=== PATIENT | male | born 1990 | race Caucasian/White ===

== ENCOUNTER 2022-06-03 16:59 | Emergency (ER) | payer OTHER, SELFPAY ==
[2022-06-03 19:02] VITALS: BP 133/73; PULSE 76; RESP 18; TEMP 37.2; O2SAT 100; BMI 31.3
--- NOTE | 2022-06-03 21:39 | ED_ITS ---
HPI - Dental/Oral General Chief complaint: Dental/Oral Stated complaint: dental pain Time Seen by Provider: 06/03/22 21:39 History of Present Illness HPI Narrative: This is a 32-year-old male who presents to the emergency department with 3 days of dental pain. He states that over the past 3 days he has had dental pain localized to left upper teeth, this has been constant and worsening since onset and he now reports pain radiation up the left side his and to his head. This pain is described as sharp in nature and persistent despite taking ibuprofen. He states that he has had issues with his teeth in the past that has required the use of antibiotics, does not have any known antibiotic allergies. Has not seen a dentist in some time. Patient states that he has smoked tobacco, approximately 3 cigarettes a day for quite some time, denies chewing tobacco. Denies trauma to the face, mouth or jaw. Denies difficulty or pain with swallowing, fever, chills, stridor, chest pain, shortness of breath, vision changes. MD Complaint: tooth pain Teeth map: 1. Onset (ago): day(s) (3) Duration: constant Severity: moderate Relieving factors: nothing Related Data Previous Rx's Medication Instructions Recorded acetaminophen 325 mg capsule 325 mg PO QID PRN fever or pain 06/03/22 #20 caps amoxicillin 500 mg capsule 500 mg PO BID 10 days #20 caps 06/03/22 ibuprofen 600 mg tablet 600 mg PO Q8H PRN fever or pain 06/03/22 #20 tabs Allergies Allergy/AdvReac Type Severity Reaction Status Date / Time seafood Allergy Swelling Verified 06/03/22 19:02 Review of Systems Review of Systems: Constitutional : No Weight loss, No Fever, No Chills, No Fatigue, No Malaise ENT/Mouth : No sore throat, No Rhinorrhea, + dental pain Eyes: No Eye Pain, No Swelling, No Redness Cardiovascular : No Chest Pain, No SOB, No Dyspnea on Exertion, No Orthopnea, No Edema, No Palpitations Respiratory : No Cough, No Sputum, No Wheezing Gastrointestinal : No Nausea, No Vomiting, No Diarrhea, No Constipation, No abdominal Pain, No Hematochezia, No Melena Genitourinary : No Dysuria, No Urinary Frequency, No Hematuria, Musculoskeletal : No joint pain, No Myalgias, No Joint Swelling Skin : No Skin Lesions, No rash Neuro : No Weakness, No Numbness, No Dizziness, No Headache All other systems reviewed and are negative [facility] Past Medical History Attestation statement: The following information was validated with the patient. Source: old records reviewed and nursing notes reviewed Social History Social History Advance Directives: No Advance Directives Information Provided: No Physical Exam Vital Signs: Vital Signs: Last Vital Signs Temp 98.9 F 06/03/22 19:02 Pulse 76 06/03/22 19:02 Resp 18 06/03/22 19:02 BP 133/73 06/03/22 19:02 Pulse Ox 100 06/03/22 19:02 O2 Del Method 06/03/22 19:02 BMI result Body Mass Index 31.3 vss Appearance: Alert.? Oriented X3.? No acute distress.? Patient is sitting comfortably in the chair. Head: Normocephalic, atraumatic, no step-offs or deformities Eyes: Pupils equal, round and reactive to light.? ENT: Pharynx normal. Uvula midline. No submandibular or submental lymphadenop athy. Poor dentition with multiple caries and fractured tooth to the left lower side. Erythematous and inflamed oral mucosa noted to the left side. Unable to palpate abscess. Speaking in full sentences. No mastoid tenderness. Neck: Normal inspection.? Neck supple.? CVS: Normal heart rate and rhythm.? Pulses normal.? Respiratory: No respiratory distress.? Breath sounds normal.? Abdomen: Soft and nontender.? Skin: Skin warm and dry.? Normal skin color.? Normal skin turgor.? Extremities: No lower extremity edema.? No calf ttp. 5/5 strength to bilateral upper and lower extremities Neuro: Oriented X 3.? No motor deficit.? No sensory deficit. Course Reevaluation(s) Reevaluation #1: Educated patient on plan and diagnosis. Patient will go home with amoxicillin p.o. b.i.d. times 10 days. Advised to follow-up with dentist, educated on worrisome signs and symptoms. Advised to return with any new or worsening symptoms. Time: 22:09 MDM - Dental/Oral MDM Narrative Medical decision making narrative: 2129 This is a 32-year-old male presenting with dental pain localized to the back left molars x3 days. History of dental issues in the past requiring antibiotics. Denies stridor, difficulty swallowing, difficulty speaking. Physical exam significant for pharynx normal. Uvula midline. No submandibular or submental lymphadenopathy. Poor dentition with multiple caries and fractured tooth to the left lower side. Erythematous and inflamed oral mucosa noted to t he left side. Unable to palpate abscess. Speaking in full sentences. No mastoid tenderness. Suspicion for tooth infection. No palpable abscess,no signs of respiratory distress or stridor. No signs of mastoiditis or parotiditis. Educated patient on prompt follow-up with dentist. Discussed returning to the emergency department for worrisome or worsening symptoms. All patient's questions were answered and patient expressed understanding and agreement with discharge plan. Medical Records Attestation: I reviewed the patient's medical records. Lab Data Attestation: I reviewed the patient's lab results. Critical Care Time Critical Care Time Critical Care Time: No Discharge Plan Discharge Clinical Impression: Toothache Patient Disposition: Home, Self-Care Additional Instructions: Take your medications as prescribed. If you were prescribed antibiotics today, it is important that you take your medication to their entirety, do not skip any doses, do not finish them early. Follow-up with your primary care provider and dentist this week. Return to the emergency department with new or worsening symptoms, including difficulty swallowing, difficulty speaking, difficulty opening mouth, fever, worsening pain. In case of emergency call 911 If you do not have a dentist you can call the [facility] [phone] to schedule an apointment Prescriptions: New amoxicillin 500 mg capsule 500 mg PO BID 10 Days Qty: 20 0RF ibuprofen 600 mg tablet 600 mg PO Q8H PRN (Reason: fever or pain) Qty: 20 0RF acetaminophen 325 mg capsule 325 mg PO QID PRN (Reason: fever or pain) Qty: 20 0RF Referrals: Physician,Unknown J [Primary Care Provider] - 2 days Stand Alone Forms: Work/School Release
== END 2022-06-03 22:36 | disposition home or self-care (01) ==
PROVIDERS: Emergency Provider Internal Medicine
DX: K08.89 Other specified disorders of teeth and supporting structures (principal)
CPT/HCPCS: 99282; 99283

== ENCOUNTER 2022-07-11 09:26 | Emergency (ER) | payer OTHER, SELFPAY ==
--- NOTE | ~2022-07-11 | CT_ITS ---
EXAMINATION: CT ABDOMEN AND PELVIS WITHOUT CONTRAST CLINICAL INFORMATION: Right-sided flank pain COMPARISON: None TECHNIQUE: Multidetector volumetric imaging was performed from the superior aspect of the liver through the pubic symphysis. Sagittal and coronal reformatted images were obtained on the technologist's workstation. This CT examination was performed using dose optimization techniques as appropriate, variously including the following: *Automated exposure control *Adjustment of mA and/or kV according to patient size (this includes techniques or standardized protocols for targeted exams where dose is matched to indication/reason for exam; i.e. extremities or head) *Use of iterative reconstruction technique DLP: 615 mGy-cm FINDINGS: LUNG BASES: The visualized lung bases are unremarkable. LIVER, GALLBLADDER, AND BILIARY TREE: The liver is normal in size, shape, and attenuation. No focal hepatic lesion or biliary ductal dilatation is present. The gallbladder is unremarkable with no evidence of radiopaque gallstones, gallbladder wall thickening, or obvious pericholecystic inflammatory changes. PANCREAS: Unremarkable. SPLEEN: Unremarkable. ADRENAL GLANDS: Unremarkable. KIDNEYS AND URETERS: The kidneys are normal in size, shape, and attenuation. No hydronephrosis, hydroureter, or calculi seen. No perinephric stranding. BLADDER: Unremarkable. GASTROINTESTINAL TRACT: The small and large bowel are unremarkable. The appendix is unremarkable. ABDOMINAL WALL: No significant hernia is appreciated. LYMPH NODES: Normal. VASCULAR: Unremarkable. PELVIC VISCERA: Unremarkable. OSSEOUS STRUCTURES: Unremarkable. CT/CT abdomen pelvis wo IV con IMPRESSION: Unremarkable study. No evidence for nephrolithiasis or hydronephrosis. Fleischner guidelines were followed.
[2022-07-11 12:26] VITALS: BP 123/76; PULSE 69; RESP 18; TEMP 36.2; O2SAT 97; BMI 32.8
--- NOTE | 2022-07-11 12:42 | ED.BACK ---
HPI - Back Pain/Injury General Chief Complaint: Back Pain/Injury Stated Complaint: back pain r hand pain coughing Time Seen by Provider: 07/11/22 12:41 Source: patient, family and rehabilitation therapy technician Mode of arrival: ambulatory Limitations: no limitations History of Present Illness HPI Narrative: 32-year-old male came in for evaluation of back pain. Back pain started 2 days ago, pain is localized to mid back and right flank area, patient declined any trauma or moving in the wrong way or injury to the back, never had this pain in the past, no history of kidney stones, reported that urine is dark, no fever or chills. Decline dysuria, urinary frequency, or risk for STDs. Related Data Previous Rx's Medication Instructions Recorded acetaminophen 325 mg capsule 325 mg PO QID PRN fever or pain 06/03/22 #20 caps amoxicillin 500 mg capsule 500 mg PO BID 10 days #20 caps 06/03/22 ibuprofen 600 mg tablet 600 mg PO Q8H PRN fever or pain 06/03/22 #20 tabs ibuprofen 600 mg tablet 600 mg PO Q8H PRN pain #20 tabs 07/11/22 Allergies Allergy/AdvReac Type Severity Reaction Status Date / Time seafood Allergy Swelling Verified 06/03/22 19:02 Review of Systems Review of Systems: All other systems are reviewed and are negative Constitutional: Reports as per HPI and Reports no additional constitutional complaints Eyes: Reports as per HPI and Reports no additional eye complaints Reports system reviewed and no additional complaints, except as documented Cardiovascular: Reports as per HPI and Reports no additional cardiovascular complaints Respiratory: Reports as per HPI and Reports no additional respiratory complaints Gastrointestinal: Reports as per HPI and Reports no additional gastrointestinal complaints Genitourinary: Reports no additional female genitourinary complaints Musculoskeletal: Reports no additional musculoskeletal complaints Skin/Breast: Reports system reviewed and no additional complaints, except as docu Psychiatric: Reports no additional psychiatric complaints Endocrine: Reports no additional endocrine complaints Hematologic/Lymphatic: Reports no additional hematologic/lymphatic complaints Allergic/Immunologic: Reports no additional allergic/immunologic complaints Reports system reviewed and no additional complaints, except as documented and Reports Abnormal speech present [facility] Social History Social History Advance Directives: No Advance Directives Information Provided: No Physical Exam Vital Signs: Vital Signs: Last Vital Signs Temp 97.1 F 07/11/22 12:26 Pulse 69 07/11/22 12:26 Resp 18 07/11/22 12:26 BP 123/76 07/11/22 12:26 Pulse Ox 97 07/11/22 12:26 O2 Del Method 07/11/22 12:26 BMI result Body Mass Index 32.8 Vital signs have been reviewed as appeared to be correct. Blood pressure normal. Heart rate normal. Respiration rate normal. Temperature normal. Oxygen saturation normal. Appearance: Alert. Oriented X3. No acute distress. Head: Normal external exam. Normocephalic. Atraumatic. No Carrillo signs noted. No raccoon eyes noted Eyes: PERRLA. EOMI. Conjunctiva and sclera normal. Eyelids normal. ENT: TM's Normal. Pharynx normal. Uvula midline. Moist mucous membranes. No trismus noted. No drooling noted. No muffled voice noted. Neck: Normal inspection. Neck supple. FROM. No adenopathy. Thyroid Normal. No meningeal signs. No neck mass noted. CVS: Normal heart rate and rhythm. Heart sound normal. No murmurs noted. Pulses normal throughout. Respiratory: No respiratory distress. Painless inspiration. Breath sounds normal. No wheezes/rales/rhonchi noted. Chest nontender. No accessory muscle usage noted or decreased air movement noted. Abdomen: Soft and nontender. Bowel sounds normal in all 4 quadrants. No distention noted. No organomegaly noted. No visible injury noted. Back: R CVA tenderness. Full range of motion noted. Skin: Skin warm and dry. Normal skin color. Normal skin turgor. No rashes/lesions/lacerations noted. Extremities: No lower extremity edema. Extremities exhibit normal range of motion. Extremities nontender. Neuro: Oriented X 3. Cranial nerve exam: II-XII are grossly intact No motor deficit. No sensory deficit. Reflexes normal. Course Course Course Narrative: 32-year-old male came in for evaluation of back pain and right flank pain, CT was unremarkable for acute intra-abdominal pathology, however micro hematuria was noticed on the patient's urine which could be recent stone passage. Start the patient on NSAIDs p.r.n. pain and rest with heating pads. MDM - Back Pain/Injury Lab Data Attestation: I reviewed the patient's lab results. Result diagrams: 07/11/22 13:23 07/11/22 13:23 Labs: Lab Results 07/11/22 07/11/22 07/11/22 Range/Units 13:23 13:23 13:23 WBC 7.3 (4.8-10.8) X10*3/uL RBC 5.61 (4.60-5.80) X10*6/uL Hgb 16.6 (14.0-18.0) g/dl Hct 49.4 (42.0-52.0) % MCV 88.1 (80.0-98.0) fL MCH 29.6 (27.0-33.0) pg MCHC 33.6 (31.0-36.0) g/dl RDW 12.8 (11.0-16.0) % Plt Count 260 (160-400) X10*3/uL MPV 8.7 L (9.4-12.4) fL Immature Gran % (Auto) 0.3 (0.0-0.4) % Neut % (Auto) 56.0 (45-73) % Lymph % (Auto) 28.4 (20-40) % Evangeline % (Auto) 11.3 H (2-11) % Eos % (Auto) 3.3 (0-4) % Baso % (Auto) 0.7 (0-2) % Lymph # (Auto) 2.1 (1.2-4.9) X10*3/uL Evangeline # (Auto) 0.8 (0.1-1.2) X10*3/uL Eos # (Auto) 0.2 (0.0-0.4) X10*3/uL Baso # (Auto) 0.1 (0.0-0.2) X10*3/uL Abs Immat Gran (auto) 0.02 (0.00-0.03) X10*3/uL Absolute Neuts (auto) 4.1 (2.0-8.3) x10*3/uL Absolute Nucleated RBC 0.000 (0.0-0.012) X10*3/uL Nucleated RBC % (auto) 0.0 (0.0-0.2) /100WBC Sodium 138 (135-145) mmol/L Potassium 4.4 (3.3-5.1) mmol/L Chloride 102 (96-108) mmol/L Carbon Dioxide 25 (22-29) mmol/L Anion Gap 15 (12-20) BUN 9 (9-16) mg/dL Creatinine 1.31 (0.5-1.4) mg/dL Estim Creat Clear Calc 89.0 Estimated GFR > 60 Random Glucose 96 (60-115) mg/dL Calcium 9.3 (8.4-10.2) mg/dL Lipase 14 (8-78) U/L Urine Color Yellow Urine Appearance Clear Urine pH 6.5 (5.0-9.0) Ur Specific [place] 1.020 (1.005-1.025) Urine Protein Negative (Neg-Trace) mg/dL Urine Glucose (UA) Negative (Negative) mg/dL Urine Ketones Negative (Negative) mg/dL Urine Blood Negative (Negative) Urine Nitrite Negative (Negative) Ur Leukocyte Esterase Trace H (Negative) Urine RBC 3-5 H (0-2) /HPF Urine WBC 0-5 (0-5) /HPF Ur Squamous Epith Cells 0-2 (0-2) /HPF Urine Bacteria None Seen (None Seen) Hyaline Casts 0-2 (0-2) /LPF Imaging Data CT abdomen pelvis: Attestation: I personally reviewed and interpreted this imaging study as follows: Radiologist's impression: Unremarkable study. No evidence of nephrolithiasis or hydronephrosis. Discharge Plan Discharge Clinical Impression: Strain of lumbar region Patient Disposition: Home, Self-Care Instructions: Back Pain (ED) Prescriptions: New ibuprofen 600 mg tablet 600 mg PO Q8H PRN (Reason: pain) Qty: 20 0RF No Action amoxicillin 500 mg capsule 500 mg PO BID 10 Days Qty: 20 0RF ibuprofen 600 mg tablet 600 mg PO Q8H PRN (Reason: fever or pain) Qty: 20 0RF acetaminophen 325 mg capsule 325 mg PO QID PRN (Reason: fever or pain) Qty: 20 0RF Referrals: Physician,Unknown J [Primary Care Provider] -
[2022-07-11 13:28] LABS: MANUAL DIFF FLAG NO
[2022-07-11 13:30] LABS: Basophils Absolute Auto 0.1 X10*3/uL (0.0-0.2); Basophils Percent Auto 0.7 % (0-2); Eosinophils Absolute Auto 0.2 X10*3/uL (0.0-0.4); Eosinophils Percent Auto 3.3 % (0-4); Hematocrit 49.4 % (42.0-52.0); Hemoglobin 16.6 g/dl (14.0-18.0); Imm Gran Abs Auto 0.02 X10*3/uL (0.00-0.03); Imm Gran Pct Auto 0.3 % (0.0-0.4); Lymphocytes Absolute Auto 2.1 X10*3/uL (1.2-4.9); Lymphocytes Percent Auto 28.4 % (20-40); Mean Corpuscular HGB Conc 33.6 g/dl (31.0-36.0); Mean Corpuscular Hemoglobin 29.6 pg (27.0-33.0); Mean Corpuscular Volume 88.1 fL (80.0-98.0); Mean Platelet Volume 8.7 fL (9.4-12.4); Monocytes Absolute Auto 0.8 X10*3/uL (0.1-1.2); Monocytes Percent Auto 11.3 % (2-11); Neutrophils Absolute Auto 4.1 x10*3/uL (2.0-8.3); Platelet Count 260 X10*3/uL (160-400); Red Blood Count 5.61 X10*6/uL (4.60-5.80); Red Cell Distribution Width 12.8 % (11.0-16.0); White Blood Count 7.3 X10*3/uL (4.8-10.8)
[2022-07-11 13:31] LABS: Appearance Urine Clear; Color Urine Yellow; Glucose Urine UA Negative (Negative); Leukocyte Esterase Urine Trace (Negative); Nitrite Urine Negative (Negative); PH 6.5 (5.0-9.0); UMIC TRIGGER UACC YES; Urine Blood Negative (Negative); Urine Ketones Negative (Negative); Urine Protein Negative (Neg-Trace)
[2022-07-11 13:36] LABS: Bacteria Urine None Seen (None Seen); Hyaline Casts Urine 0-2 /LPF (0-2); Squamous Epithelial Cell Urine 0-2 /HPF (0-2); WBC Urine 0-5 /HPF (0-5)
[2022-07-11 13:43] LABS: Anion Gap 15 (12-20); Blood Urea Nitrogen 9 mg/dL (9-16); Calcium 9.3 mg/dL (8.4-10.2); Carbon Dioxide 25 mmol/L (22-29); Chloride 102 mmol/L (96-108); Estimated Glomerular Filt Rate > 60; Glucose Random 96 mg/dL (60-115); Lipase 14 U/L (8-78); Potassium 4.4 mmol/L (3.3-5.1); Sodium 138 mmol/L (135-145)
--- NOTE | 2022-07-11 14:46 | PC.NURSE ---
pt pwd at time of discharge. pt ambulatory. partner at bedside. discharge packet and work note provided to pt at time of discharge. pt verbalized understanding of discharge plan
== END 2022-07-11 14:47 | disposition home or self-care (01) ==
PROVIDERS: Emergency Provider Emergency Medicine
DX: S39.012A Strain of muscle, fascia and tendon of lower back, initial encounter (principal); X58.XXXA Exposure to other specified factors, initial encounter; Y93.9 Activity, unspecified; Y92.9 Unspecified place or not applicable; Y99.9 Unspecified external cause status
CPT/HCPCS: 36415; 74176; 80048; 81001; 83690; 85025; 99284

== ENCOUNTER 2022-11-11 16:25 | Emergency (ER) | payer OTHER, SELFPAY ==
[2022-11-11 16:59] VITALS: BP 118/68; PULSE 90; RESP 20; TEMP 37.7; O2SAT 97; BMI 31.3
--- NOTE | 2022-11-11 17:00 | ED_ITS ---
HPI - General Adult General Chief complaint: Fever <ELLE Starks - Last Filed: 11/11/22 17:01> Stated complaint: Fever, body ache <ELLE Starks - Last Filed: 11/11/22 17:01> Time Seen by Provider: 11/11/22 18:16 <ELLE Starks - Last Filed: 11/11/22 17:01> Source: patient <Luis Alfredo Nelson MD - Last Filed: 11/11/22 20:26> Mode of arrival: ambulatory <Luis Alfredo Nelson MD - Last Filed: 11/11/22 20:26> Limitations: no limitations <Luis Alfredo Nelson MD - Last Filed: 11/11/22 20:26> History of Present Illness HPI narrative: Pt presented to the Ed c/p URI symptoms fever malaise <Luis Alfredo Nelson MD - Last Filed: 11/11/22 20:26> Onset (ago): hour(s) (6) <Luis Alfredo Nelson MD - Last Filed: 11/11/22 20:26> Radiation: non-radiation <Luis Alfredo Nelson MD - Last Filed: 11/11/22 20:26> Severity: moderate <Luis Alfredo Nelson MD - Last Filed: 11/11/22 20:26> Pain Consistency: constant <Luis Alfredo Nelson MD - Last Filed: 11/11/22 20:26> Relieving factors: none <Luis Alfredo Nelson MD - Last Filed: 11/11/22 20:26> Exacerbating factors: none <Luis Alfredo Nelson MD - Last Filed: 11/11/22 20:26> Related Data Home medications: Previous Rx's Medication Instructions Recorded acetaminophen 325 mg capsule 325 mg PO QID PRN fever or pain 06/03/22 #20 caps amoxicillin 500 mg capsule 500 mg PO BID 10 days #20 caps 06/03/22 ibuprofen 600 mg tablet 600 mg PO Q8H PRN fever or pain 06/03/22 #20 tabs ibuprofen 600 mg tablet 600 mg PO Q8H PRN pain #20 tabs 07/11/22 <ELLE Starks - Last Filed: 11/11/22 17:01> Allergies/adverse reactions: Allergies Allergy/AdvReac Type Severity Reaction Status Date / Time seafood Allergy Swelling Verified 06/03/22 19:02 <ELLE Starks - Last Filed: 11/11/22 17:01> Review of Systems Constitutional: Constitutional: Reports no additional constitutional complaints <Luis Alfredo Nelson MD - Last Filed: 11/11/22 20:26> Eyes: Eyes: Reports no additional eye complaints <Luis Alfredo Nelson MD - Last Filed: 11/11/22 20:26> Respiratory: Respiratory: Reports no additional respiratory complaints <Luis Alfredo Nelson MD - Last Filed: 11/11/22 20:26> Allergic/Immunologic: Allergic/Immunologic: Reports no additional allergic/immunologic complaints <Luis Alfredo Nelson MD - Last Filed: 11/11/22 20:26> PMFSH [facility] Narrative: none <Luis Alfredo Nelson MD - Last Filed: 11/11/22 20:26> Social History Social History: Social History Advance Directives: No Advance Directives Information Provided: No <ELLE Starks - Last Filed: 11/11/22 17:01> Physical Exam ED Vital Signs: Vital Signs - 24 hr 11/11/22 16:59 11/11/22 18:34 Temperature 99.8 F 100.7 F H Pulse Rate 90 96 Respiratory Rate 20 20 Blood Pressure 118/68 128/62 Pulse Oximetry 97 98 Oxygen Delivery Method Room Air Room Air BMI result Body Mass Index 31.3 <ELLE Starks - Last Filed: 11/11/22 17:01> Vital Signs - 24 hr 11/11/22 16:59 11/11/22 18:34 Temperature 99.8 F 100.7 F H Pulse Rate 90 96 Respiratory Rate 20 20 Blood Pressure 118/68 128/62 Pulse Oximetry 97 98 Oxygen Delivery Method Room Air Room Air BMI result Body Mass Index 31.3 <Luis Alfredo Nelson MD - Last Filed: 11/11/22 20:26> Const General: cooperative, healthy appearing and comfortable <Luis Alfredo Nelson MD - Last Filed: 11/11/22 20:26> Nutritional Appearance: average body habitus and well nourished <Luis Alfredo Nelson MD - Last Filed: 11/11/22 20:26> Orientation/consciousness: oriented to person and patient oriented x3 <Luis Alfredo Nelson MD - Last Filed: 11/11/22 20:26> HENMT Head: Yes normal to inspection <Luis Alfredo Nelson MD - Last Filed: 11/11/22 20:26> General nose exam: Normal external nose present <Luis Alfredo Nelson MD - Last Filed: 11/11/22 20:26> Face and sinus: Yes normal facial exam <Luis Alfredo Nelson MD - Last Filed: 11/11/22 20:26> Mouth: Normal oral and palatal mucosa present <Luis Alfredo Nelson MD - Last Filed: 11/11/22 20:26> Throat: Yes posterior oropharynx normal <Luis Alfredo Nelson MD - Last Filed: 11/11/22 20:26> Neck Neck: Yes normal visual inspection, Yes full ROM and Yes no lymphadenopathy <Luis Alfredo Nelson MD - Last Filed: 11/11/22 20:26> Thyroid: Thyroid normal <Luis Alfredo Nelson MD - Last Filed: 11/11/22 20:26> Chest Chest palpation & inspection: normal inspection of the chest <Luis Alfredo Nelson MD - Last Filed: 11/11/22 20:26> Resp Effort & Inspection: normal respiratory effort <Luis Alfredo Nelson MD - Last Filed: 11/11/22 20:26> Auscultation: clear to auscultation bilaterally <Luis Alfredo Nelson MD - Last Filed: 11/11/22 20:26> Cardio Jugular venous distension: no JVD <Luis Alfredo Nelson MD - Last Filed: 11/11/22 20:26> Rate: regular rate <Luis Alfredo Nelson MD - Last Filed: 11/11/22 20:26> Rhythm: regular rhythm <Luis Alfredo Nelson MD - Last Filed: 11/11/22 20:26> GI Inspection: Yes normal to inspection <Luis Alfredo Nelson MD - Last Filed: 11/11/22 20:26> Palpation (GI): Soft to palpation, not firm and nontender <Luis Alfredo Nelson MD - Last Filed: 11/11/22 20:26> General: Yes no CVA tenderness <Luis Alfredo Nelson MD - Last Filed: 11/11/22 20:26> Back/Spine/Pelvis Back: no CVA tenderness <Luis Alfredo Nelson MD - Last Filed: 11/11/22 20:26> Skin General skin exam: no rashes or lesions noted <Luis Alfredo Nelson MD - Last Filed: 11/11/22 20:26> Lesions: no lesions <Luis Alfredo Nelson MD - Last Filed: 11/11/22 20:26> Rashes: no rashes <Luis Alfredo Nelson MD - Last Filed: 11/11/22 20:26> Neuro General: oriented to person and patient oriented x3 <Luis Alfredo Nelson MD - Last Filed: 11/11/22 20:26> Course Course Course Narrative: RME performed by Mae Oliver PA-C. Patient is a 32 year old male presenting to the emergency department with a fever and feeling generally unwell. COVID/Influenza/RSV swab ordered. Patient placed back in waiting room pending results and room availability. <ELLE Starks - Last Filed: 11/11/22 17:01> Reevaluation(s) Reevaluation #1: Reviewed hemodynamically stable workup showed the COVID at this time I think we could discharge the patient home he is oxygenating well he has no comorbidity. <Luis Alfredo Nelson MD - Last Filed: 11/11/22 20:26> Time: 20:26 <Luis Alfredo Nelson MD - Last Filed: 11/11/22 20:26> Medications Administered Discontinued Medications Generic Name Dose Route Start Last Admin Trade Name Freq PRN Reason Stop Dose Admin Ibuprofen 800 mg 11/11/22 18:24 11/11/22 18:40 Ibuprofen 800 Mg Tablet PO 11/11/22 18:25 800 mg ONCE ONE Administration <ELLE Starks - Last Filed: 11/11/22 17:01> Medications Administered Discontinued Medications Generic Name Dose Route Start Last Admin Trade Name Freq PRN Reason Stop Dose Admin Ibuprofen 800 mg 11/11/22 18:24 11/11/22 18:40 Ibuprofen 800 Mg Tablet PO 11/11/22 18:25 800 mg ONCE ONE Administration <Luis Alfredo Nelson MD - Last Filed: 11/11/22 20:26> Medical Decision Making Medical Decision Making [facility] Narrative: Presented with the fever URI symptoms will test for COVID RSV and reassessed <Luis Alfredo Nelson MD - Last Filed: 11/11/22 20:26> Differential Diagnosis Differential Diagnoses: The differential diagnosis associated with the presentation includes <Luis Alfredo Nelson MD - Last Filed: 11/11/22 20:26> covid/pneumonia/viral illness <Luis Alfredo Nelson MD - Last Filed: 11/11/22 20:26> Admission/Observation Consideration of admission/observation: Escalation of care including admission/observation considered <Luis Alfredo Nelson MD - Last Filed: 11/11/22 20:26> Lab Data [facility] Lab Attestation statement: I reviewed the patient's lab results. <Luis Alfredo Nelson MD - Last Filed: 11/11/22 20:26> Result Diagrams: 11/11/22 18:37 11/11/22 18:37 <ELLE Starks - Last Filed: 11/11/22 17:01> Labs: Lab Results 11/11/22 11/11/22 11/11/22 Range/Units 18:37 18:37 18:37 WBC 4.5 L (4.8-10.8) X10*3/uL RBC 5.06 (4.60-5.80) X10*6/uL Hgb 15.1 (14.0-18.0) g/dl Hct 43.8 (42.0-52.0) % MCV 86.6 (80.0-98.0) fL MCH 29.8 (27.0-33.0) pg MCHC 34.5 (31.0-36.0) g/dl RDW 12.9 (11.0-16.0) % Plt Count 230 (160-400) X10*3/uL MPV 8.6 L (9.4-12.4) fL Immature Gran % (Auto) 0.4 (0.0-0.4) % Neut % (Auto) 68.8 (45-73) % Lymph % (Auto) 11.7 L (20-40) % Harding % (Auto) 16.7 H (2-11) % Eos % (Auto) 2.0 (0-4) % Baso % (Auto) 0.4 (0-2) % Lymph # (Auto) 0.5 L (1.2-4.9) X10*3/uL Harding # (Auto) 0.8 (0.1-1.2) X10*3/uL Eos # (Auto) 0.1 (0.0-0.4) X10*3/uL Baso # (Auto) 0.0 (0.0-0.2) X10*3/uL Abs Immat Gran (auto) 0.02 (0.00-0.03) X10*3/uL Absolute Neuts (auto) 3.1 (2.0-8.3) x10*3/uL Absolute Nucleated RBC 0.000 (0.0-0.012) X10*3/uL Nucleated RBC % (auto) 0.0 (0.0-0.2) /100WBC Sodium 138 (135-145) mmol/L Potassium 4.1 (3.3-5.1) mmol/L Chloride 105 (96-108) mmol/L Carbon Dioxide 24 (22-29) mmol/L Anion Gap 13 (12-20) BUN 13 (9-16) mg/dL Creatinine 1.46 H (0.5-1.4) mg/dL Estim Creat Clear Calc 78.0 Estimated GFR 56 Random Glucose 115 (60-115) mg/dL Calcium 9.0 (8.4-10.2) mg/dL Total Bilirubin 0.4 (0.0-1.0) mg/dL AST 67 H (5-37) U/L ALT 62 H (0-40) U/L Alkaline Phosphatase 102 (39-117) U/L Total Protein 7.3 (6.5-8.0) g/dL Albumin 4.0 (3.5-5.0) g/dL Influenza Type A (PCR) NEGATIVE (Negative) Influenza Type B (PCR) NEGATIVE (Negative) RSV RNA Qual (PCR) NEGATIVE (Negative) SARS-CoV-2 RNA (RT-PCR) POSITIVE A (Negative) <ELLE Starks - Last Filed: 11/11/22 17:01> Lab Results 11/11/22 11/11/22 11/11/22 Range/Units 18:37 18:37 18:37 WBC 4.5 L (4.8-10.8) X10*3/uL RBC 5.06 (4.60-5.80) X10*6/uL Hgb 15.1 (14.0-18.0) g/dl Hct 43.8 (42.0-52.0) % MCV 86.6 (80.0-98.0) fL MCH 29.8 (27.0-33.0) pg MCHC 34.5 (31.0-36.0) g/dl RDW 12.9 (11.0-16.0) % Plt Count 230 (160-400) X10*3/uL MPV 8.6 L (9.4-12.4) fL Immature Gran % (Auto) 0.4 (0.0-0.4) % Neut % (Auto) 68.8 (45-73) % Lymph % (Auto) 11.7 L (20-40) % Harding % (Auto) 16.7 H (2-11) % Eos % (Auto) 2.0 (0-4) % Baso % (Auto) 0.4 (0-2) % Lymph # (Auto) 0.5 L (1.2-4.9) X10*3/uL Harding # (Auto) 0.8 (0.1-1.2) X10*3/uL Eos # (Auto) 0.1 (0.0-0.4) X10*3/uL Baso # (Auto) 0.0 (0.0-0.2) X10*3/uL Abs Immat Gran (auto) 0.02 (0.00-0.03) X10*3/uL Absolute Neuts (auto) 3.1 (2.0-8.3) x10*3/uL Absolute Nucleated RBC 0.000 (0.0-0.012) X10*3/uL Nucleated RBC % (auto) 0.0 (0.0-0.2) /100WBC Sodium 138 (135-145) mmol/L Potassium 4.1 (3.3-5.1) mmol/L Chloride 105 (96-108) mmol/L Carbon Dioxide 24 (22-29) mmol/L Anion Gap 13 (12-20) BUN 13 (9-16) mg/dL Creatinine 1.46 H (0.5-1.4) mg/dL Estim Creat Clear Calc 78.0 Estimated GFR 56 Random Glucose 115 (60-115) mg/dL Calcium 9.0 (8.4-10.2) mg/dL Total Bilirubin 0.4 (0.0-1.0) mg/dL AST 67 H (5-37) U/L ALT 62 H (0-40) U/L Alkaline Phosphatase 102 (39-117) U/L Total Protein 7.3 (6.5-8.0) g/dL Albumin 4.0 (3.5-5.0) g/dL Influenza Type A (PCR) NEGATIVE (Negative) Influenza Type B (PCR) NEGATIVE (Negative) RSV RNA Qual (PCR) NEGATIVE (Negative) SARS-CoV-2 RNA (RT-PCR) POSITIVE A (Negative) <Luis Alfredo Nelson MD - Last Filed: 11/11/22 20:26> Independent Historian Clinical information obtained from an independent historian. History obtained from or confirmed by: Spouse <Luis Alfredo Nelson MD - Last Filed: 11/11/22 20:26> Discharge Plan Discharge Clinical Impression: COVID-19 <ELLE Starks - Last Filed: 11/11/22 17:01> Patient Disposition: Home, Self-Care <ELLE Starks - Last Filed: 11/11/22 17:01> Instructions: COVID-19 (Coronavirus Disease 2019) (ED) <ELLE Starks - Last Filed: 11/11/22 17:01> Additional Instructions: follow up with primary care doctor return if worse <ELLE Starks - Last Filed: 11/11/22 17:01> Prescriptions: No Action amoxicillin 500 mg capsule 500 mg PO BID 10 Days Qty: 20 0RF ibuprofen 600 mg tablet 600 mg PO Q8H PRN (Reason: fever or pain) Qty: 20 0RF acetaminophen 325 mg capsule 325 mg PO QID PRN (Reason: fever or pain) Qty: 20 0RF ibuprofen 600 mg tablet 600 mg PO Q8H PRN (Reason: pain) Qty: 20 0RF <ELLE Starks - Last Filed: 11/11/22 17:01> Stand Alone Forms: Work/School Release <ELLE Starks - Last Filed: 11/11/22 17:01>
[2022-11-11 18:34] VITALS: BP 128/62; PULSE 96; RESP 20; TEMP 38.2; O2SAT 98
[2022-11-11] MEDS: Ibuprofen 800 MG TABLET PO (18:40)
[2022-11-11 18:53] LABS: MANUAL DIFF FLAG NO
[2022-11-11 18:54] LABS: Basophils Percent Auto 0.4 % (0-2); Eosinophils Absolute Auto 0.1 X10*3/uL (0.0-0.4); Hematocrit 43.8 % (42.0-52.0); Hemoglobin 15.1 g/dl (14.0-18.0); Imm Gran Abs Auto 0.02 X10*3/uL (0.00-0.03); Imm Gran Pct Auto 0.4 % (0.0-0.4); Lymphocytes Absolute Auto 0.5 X10*3/uL (1.2-4.9); Lymphocytes Percent Auto 11.7 % (20-40); Mean Corpuscular HGB Conc 34.5 g/dl (31.0-36.0); Mean Corpuscular Hemoglobin 29.8 pg (27.0-33.0); Mean Corpuscular Volume 86.6 fL (80.0-98.0); Mean Platelet Volume 8.6 fL (9.4-12.4); Monocytes Absolute Auto 0.8 X10*3/uL (0.1-1.2); Monocytes Percent Auto 16.7 % (2-11); Neutrophils Absolute Auto 3.1 x10*3/uL (2.0-8.3); Neutrophils Percent Auto 68.8 % (45-73); Platelet Count 230 X10*3/uL (160-400); Red Blood Count 5.06 X10*6/uL (4.60-5.80); Red Cell Distribution Width 12.9 % (11.0-16.0); White Blood Count 4.5 X10*3/uL (4.8-10.8)
[2022-11-11 19:09] LABS: Alanine Aminotransferase 62 U/L (0-40); Alkaline Phosphatase 102 U/L (39-117); Anion Gap 13 (12-20); Aspartate Amino Transferase 67 U/L (5-37); Bilirubin Total 0.4 mg/dL (0.0-1.0); Blood Urea Nitrogen 13 mg/dL (9-16); Carbon Dioxide 24 mmol/L (22-29); Chloride 105 mmol/L (96-108); Estimated Glomerular Filt Rate 56; Glucose Random 115 mg/dL (60-115); Potassium 4.1 mmol/L (3.3-5.1); Sodium 138 mmol/L (135-145); Total Protein 7.3 g/dL (6.5-8.0)
[2022-11-11 19:32] LABS: Influenza A PCR NEGATIVE (Negative); Influenza B PCR NEGATIVE (Negative); Resp Syncy Virus RNA Qual PCR NEGATIVE (Negative); SARS COV2 PCR INHOUSE POSITIVE (Negative)
--- NOTE | 2022-11-11 19:34 | PC.NURSE ---
assumed care of patient at this time a&ox4, resting quietly while visitor at bedside no apparent distress
--- NOTE | 2022-11-11 20:42 | PC.NURSE ---
discharge instructions given and explained, ambulates safely/independently, no respiratory distress, no sob, able to speak in full sentences; all questions answered
== END 2022-11-11 20:43 | disposition home or self-care (01) ==
PROVIDERS: Physician Assistant Medical; Emergency Provider Emergency Medicine
DX: U07.1 COVID-19 (principal); R50.9 Fever, unspecified
CPT/HCPCS: 0241U; 36415; 80053; 85025; 99283; 99284

== ENCOUNTER 2022-12-02 17:11 | Emergency (ER) | payer OTHER, SELFPAY ==
[2022-12-02 17:44] VITALS: BP 118/77; PULSE 76; RESP 18; TEMP 37.1; O2SAT 97; BMI 34.4
--- NOTE | 2022-12-02 19:57 | ED_ITS ---
HPI - Ear Problem General Chief complaint: Ear Problems Stated complaint: Earache Time Seen by Provider: 12/02/22 19:36 Source: patient and family Mode of arrival: ambulatory Limitations: no limitations History of Present Illness HPI Narrative: 32-year-old male presenting to the ER with his girlfriend with complaints of bilateral ear pain for the past week worse on the left than the right. Reports he feels like there was discharged to the left ear canal although unable to visualize it. Reports he did buy some [id number] drops which is not providing any symptomatic relief. He denies any fevers, nasal congestion/rhinorrhea, sore throat, recent falls or trauma, recent swimming or any other symptoms complaints or concerns at this time. MD Complaint: ear pain and decreased hearing Location: left ear Duration: constant Severity: mild Relieving factors: nothing Exacerbating factors: palpation Discharge from ear: yes - purulent Associated symptoms ear: decreased hearing, external ear tenderness and ear swelling Treatment prior to arrival: eardrops Related Data Previous Rx's Medication Instructions Recorded acetaminophen 325 mg capsule 325 mg PO QID PRN fever or pain 06/03/22 #20 caps amoxicillin 500 mg capsule 500 mg PO BID 10 days #20 caps 06/03/22 ibuprofen 600 mg tablet 600 mg PO Q8H PRN fever or pain 06/03/22 #20 tabs ibuprofen 600 mg tablet 600 mg PO Q8H PRN pain #20 tabs 07/11/22 acetaminophen 300 mg-codeine 30 mg 1 tab PO Q8H PRN pain #10 tabs 12/02/22 tablet amoxicillin 875 mg-potassium 1 tab PO BID 7 days #14 tabs 12/02/22 clavulanate 125 mg tablet ciprofloxacin HCl 0.2 % ear drops 5 drp otic (ear) left BID Otitis 12/02/22 in a dropperette externa 7 days #14 ea Allergies Allergy/AdvReac Type Severity Reaction Status Date / Time seafood Allergy Swelling Verified 12/02/22 17:46 Review of Systems Review of Systems: Constitutional : No Weight loss, No Fever, No Chills, No Night Sweats, No Fatigue, No Malaise ENT/Mouth : No Hearing loss, + Ear Pain, No Nasal Congestion, No Sinus Pain, No Hoarseness, No sore throat, No Rhinorrhea, No Swallowing Difficulty Eyes: No Eye Pain, No Swelling, No Redness, No Foreign Body, No Discharge, No Vision Changes Cardiovascular : No Chest Pain, No SOB, No Dyspnea on Exertion, No Orthopnea, No Edema, No Palpitations Respiratory : No Cough, No Sputum, No Wheezing, No Smoke Exposure, No Dyspnea Gastrointestinal : No Nausea, No Vomiting, No Diarrhea, No Constipation, No abdominal Pain, No Hematochezia, No Melena Genitourinary : no irregular bleeding, No Dysuria, No Urinary Frequency, No Hematuria, No Urinary Incontinence, No Urgency, No Flank Pain, No Urinary Flow Changes, No Hesitancy Musculoskeletal : No joint pain, No Myalgias, No Joint Swelling Skin : No Skin Lesions, No rash Neuro : No Weakness, No Numbness, No Paresthesias, No Loss of Consciousness, No Dizziness, No Headache Psych : No Anxiety/Panic, No Depression, No SI/HI/AH/VH, No Social Issues, Heme/Lymph: No Bruising, No Bleeding,No Lymphadenopathy Endocrine : No Polyuria, No Polydipsia, No Temperature Intolerance Yes all other systems are reviewed and are negative [facility] Past Medical History Attestation statement: The following information was validated with the patient. Source: old records reviewed and nursing notes reviewed Social History Social History Alcohol intake: never Advance Directives: No Advance Directives Information Provided: No Physical Exam Vital Signs: Vital Signs: Last Vital Signs Temp 98.7 F 12/02/22 17:44 Pulse 76 12/02/22 17:44 Resp 18 12/02/22 17:44 BP 118/77 12/02/22 17:44 Pulse Ox 97 12/02/22 17:44 O2 Del Method 12/02/22 17:44 BMI result Body Mass Index 34.4 Vital signs reviewed. Blood pressure normal. Pulse normal. Respiration normal. Oxygen normal. Temperature normal. Appearance: Alert. Oriented X3. No acute distress. Head: Normal external exam. Normocephalic. Atraumatic. Eyes: PERRLA. EOMI. Conjunctiva and sclera normal. Eyelids normal. ENT: Right EAC normal. Right TM's Normal. Left external ear canal noted to be edemous, erythemous and noted to have purulent discharge consistent with left otitis externa. Not consistent mastoiditis. Pharynx normal. Uvula midline. Moist mucous membranes. No lesions/ulcerations or masses noted on the tongue. Normal voice. No trismus noted. No drooling noted. No muffled voice noted. Neck: Normal inspection. Neck supple. FROM. No adenopathy. Thyroid Normal. No meningeal signs. CVS: Normal heart rate and rhythm. Heart sound normal. Pulses normal throughout. No murmurs/rales/gallops. Respiratory: No respiratory distress. Painless inspiration. Breath sounds normal. No wheezes/rales/rhonchi noted. Chest nontender. No accessory muscle usage noted or decreased air movement noted. Abdomen: Soft and nontender. Back: Full range of motion noted. Nontender. Skin: Skin warm and dry. Normal skin color. Normal skin turgor. No rashes/lesions/lacerations noted. Extremities: Extremities exhibit normal range of motion and nontender. Neuro: Oriented X 3. No motor deficit. No sensory deficit. Reflexes normal. Normal steady gait. No focal neuro deficits noted. CN's II-XII intact bilaterally? Vascular: + radial pulses. Normal cap refill. No cyanosis noted to upper extremity nails Course Course Course Narrative: 32-year-old male presenting to the ER with complaints of bilateral ear pain. On exam patient appears to have left otitis externa. Not consistent with mastoiditis. Unable to visualize the left tympanic membrane. Neck is soft nontender supple. Therefore at this time patient now status post wick placement. Patient tolerated procedure well. No complications. Will start on topical and oral antibiotics with instructions to follow-up with the ear nose and throat doctor and to return if any new or worsening symptoms. Patient with significant other at bedside understand agree this plan. Medications Administered Discontinued Medications Generic Name Dose Route Start Last Admin Trade Name Freq PRN Reason Stop Dose Admin Acetaminophen/Codeine Phosphate 1 tab 12/02/22 19:53 12/02/22 20:12 Acetaminophen With Codeine # 3 Tablet PO 12/02/22 19:54 1 tab ONCE ONE Administration Neomycin/Polymyxin/Hydrocortisone 4 drop 12/02/22 19:54 12/02/22 20:12 Neomycin/Polymyxin/Hc Otic Nelly Bottle EAR-LEFT 12/02/22 19:55 4 drop ONCE ONE Administration Discharge Plan Discharge Clinical Impression: Otitis externa Patient Disposition: Home, Self-Care Instructions: Otitis Externa (ED) Prescriptions: New ciprofloxacin HCl 0.2 % dropperette 5 drp otic (ear) left BID 7 Days Qty: 14 0RF acetaminophen-codeine 300-30 mg tablet 1 tab PO Q8H PRN (Reason: pain) Qty: 10 0RF amoxicillin-pot clavulanate 875-125 mg tablet 1 tab PO BID 7 Days Qty: 14 0RF No Action amoxicillin 500 mg capsule 500 mg PO BID 10 Days Qty: 20 0RF ibuprofen 600 mg tablet 600 mg PO Q8H PRN (Reason: fever or pain) Qty: 20 0RF acetaminophen 325 mg capsule 325 mg PO QID PRN (Reason: fever or pain) Qty: 20 0RF ibuprofen 600 mg tablet 600 mg PO Q8H PRN (Reason: pain) Qty: 20 0RF Interventions: ED Discharge Assessment Last Done: 12/02/22 20:15 Discharge Date/Time: 12/02/22 20:19
[2022-12-02] MEDS: NeoMYCIN/Polymyxin/HC Otic Sol BOTTLE 4 DROP EAR-LEFT (20:12)
== END 2022-12-02 20:19 | disposition home or self-care (01) ==
PROVIDERS: Emergency Provider Emergency Medicine
DX: H60.92 Unspecified otitis externa, left ear (principal); H92.03 Otalgia, bilateral
CPT/HCPCS: 99283

== ENCOUNTER 2024-02-13 20:26 | Emergency (ER) | payer OTHER, SELFPAY ==
--- NOTE | ~2024-02-13 | XR_ITS ---
EXAMINATION: XR SHOULDER, RIGHT CLINICAL INFORMATION: Unable to move arm COMPARISON: None available. TECHNIQUE: Three views of the right shoulder. FINDINGS: Glenohumeral alignment is anatomic. No acute fracture is seen. The acromioclavicular joint appears intact. XR/XR shoulder RT min 2V IMPRESSION: No acute findings.
[2024-02-13 21:56] VITALS: BP 126/86; PULSE 63; RESP 20; TEMP 36.4; O2SAT 98; BMI 36.0
--- OUTSIDE RECORDS SUMMARY | 2024-02-14 01:58 | XMS_ITS | Continuity of Care Document ---
Author Organization [facility] Address [address] [place] [address]- Care Team Providers Care Maintenance Groundman Name Role Phone Gibson Velarde DO Primary Care Physician [phone] [id number]): [facility] - 08/19/22 [facility] [address] [place] [address]- Attending Physician: Fer Paulson MD Admitting Physician: Fer Paulson MD Referring Physician: Gibson Velarde DO Allergies, Adverse Reactions, Alerts No Known Medication Allergies Medications lithium 450 mg oral tablet, extended release 1 tablet = 450 mg, By Mouth, 2 times a day, # 60 tablet, 3 Refills, Maintenance, 01/10/18 17:44:39 EDT, ER Tablet Start Date: 01/10/18 Stop Date: 05/10/18 Status: Ordered RisperDAL 0.5 mg oral tablet 0.5 mg, 1, tablet, By Mouth, Daily, # 30 tablet, Refills 3, Tot. Refills 3, Maintenance, 01/10/18 17:43:47 EDT, Route to Pharmacy Electronically, [id number], [facility]/pharmacy #[id number] Start Date: 01/10/18 Stop Date: 05/10/18 Status: Ordered Wellbutrin XL 150 mg/24 hours oral tablet, extended release 1 tablet = 150 mg, By Mouth, Every 24 hours, # 30 tablet, 3 Refills, Maintenance, 01/10/18 17:45:46EDT, ER Tablet Start Date: 01/10/18 Stop Date: 05/10/18 Status: Ordered Social History Social History Type Response Smoking Status Current every day sm oker; Type: Cigarettes entered on: 01/10/18 Sex Patient Care team information Personnel Name: Gibson Velarde DO Address: Address: [address] [place] [address] [place], [place] [address]
--- OUTSIDE RECORDS SUMMARY | 2024-02-14 01:58 | XMS_ITS | Continuity of Care Document ---
Author Organization [facility] Address [address] [place] [address]- Care Team Providers Care Usability Engineer Name Role Phone Heron Gomez DO Primary Care Physician [phone] Encounter [facility] Date(s): 12/29/20 - 01/28/21 [facility] [address] [place], [place] [address] Allergies, Adverse Reactions, Alerts No Known Medication [...] 01/10/18 17:43:47 EDT, Route to Pharmacy Electronically, [id number], [facility]/pharmacy #[id number] Start Date: 01/10/18 Stop Date: 05/10/18 [...]
--- OUTSIDE RECORDS SUMMARY | 2024-02-14 01:58 | XMS_ITS | Continuity of Care Document ---
Author Organization [facility] Address [address] [place] [address]- Care Team Providers Care Acquisition Professional Name Role Phone Gibson Velarde DO Primary Care Physician Encounter [facility] AC[facility] R [id number] Date(s): 07/20/22 - 08/19/22 [facility] [address] [place] [address]- Attending Physician: Mehnaz Alves Admitting Physician: AdmMehnaz narayanan Referring Physician: AdmtrMehnaz Allergies, Adverse Reactions, Alerts No Known Medication [...] 01/10/18 17:43:47 EDT, Route to Pharmacy Electronically, [id number], [facility]/pharmacy #[id number] Start Date: 01/10/18 Stop Date: 05/10/18 [...] Personnel Name: Gibson Velarde DO Address: Address: [address] [place] [address] [place], [place] [address]
--- OUTSIDE RECORDS SUMMARY | 2024-02-14 01:58 | XMS_ITS | Continuity of Care Document ---
Author Organization [facility] Address [address] [place] [address]- Care Team Providers Care Digital Solution Architect Name Role Phone Heron Gomez DO Primary Care Physician Encounter [facility] Date(s): 09/29/21 - 10/29/21 [facility] [address] [place], [place] [address] Attending Physician: Mehnaz Alves Admitting Physician: AdmMehnaz [...] 01/10/18 17:43:47 EDT, Route to Pharmacy Electronically, [id number], [facility]/pharmacy #[id number] Start Date: 01/10/18 Stop Date: 05/10/18 [...]
--- OUTSIDE RECORDS SUMMARY | 2024-02-14 01:58 | XMS_ITS | Continuity of Care Document ---
Author Organization [facility] Adult Medicine Address [address] [place] [address]- Care Team Providers Care Courseware Developer Name Role Phone Gibson Velarde DO Primary Care Physician Encounter [facility] [place] [place] Date(s): 12/22/22 - 01/21/23 [facility] Adult Medicine [address] [place], [place] [address] Attending Physician: Mehnaz Alves Admitting Physician: Mehnaz Alves Referring Physician: AdmtrMehnaz Allergies, Adverse Reactions, Alerts [...] 01/10/18 17:43:47 EDT, Route to Pharmacy Electronically, [id number], [facility]/pharmacy #[id number] Start Date: 01/10/18 Stop Date: 05/10/18 Status: Ordered Wellbutrin XL 150 mg/24 hours oral tablet, extended release 1 tablet = 150 mg, By Mouth, Every 24 hours, # 30 tablet, 3 Refills, Maintenance, 01/10/18 17:45:46EDT, ER Tablet Start Date: 01/10/18 Stop Date: 05/10/18 Status: Ordered Problem List Condition Confirmation Course Effective Dates Status Health St [facility] Informant Obese class I Confirmed Active Social History Social History Type Response Smoking Status Current every day sm oker; Type: Cigarettes entered on: 01/10/18 Sex Patient Care team information Care Team Personnel Name: Gisbon Velarde DO Position: S Resident Member Role: PCP Address: Address: [address] [place] [id number]- Care Team Related Persons Name: DAIN HECK Address: home [address] [place] [address]
--- OUTSIDE RECORDS SUMMARY | 2024-02-14 01:58 | XMS_ITS | Continuity of Care Document ---
Author Organization [facility] Adult Medicine Address [address] [place] [address]- Care Team Providers Care Outside Machinist Name Role Phone Heron Gomez DO Primary Care Physician [phone] [place] [facility] [place] 10[place]/21 [facility] Adult [facility] [address] [place], [place] [address] Attending Physician: Not on Staff, Attending MD Referring Physician: Heron Gomez DO Allergies, Adverse Reactions, Alerts No Known [...] 01/10/18 17:43:47 EDT, Route to Pharmacy Electronically, [id number], [facility]/pharmacy #[id number] Start Date: 01/10/18 Stop [...]
--- OUTSIDE RECORDS SUMMARY | 2024-02-14 01:58 | XMS_ITS | Patient Health Record ---
Author Organization [facility] Address [address] [place], [place] [id number] Care Team Providers Care Buyer Grain Name Role Phone [facility]-Adult Medicine Primar Care Provider Unavailable REASON FOR REFERRAL No Information SOCIAL HISTORY Sex Assigned At : Social History Observation Description Sex Assigned At Unknown PLAN OF TREATMENT No Information Insurance Providers Payer Name Payer Address Payer Phone Subscriber Number Group Number Insured Name Patient Relationship to Insured Coverage Start Date Coverage End Date [facility] Be Healthy [address] [place] [address] [phone] [id number] Bimal Musa Self - patient is the insured [place] Medicaid Standard [address] [place] [address] [id number] Bimal Musa Self - patient is the insured
--- OUTSIDE RECORDS SUMMARY | 2024-02-14 01:58 | XMS_ITS | Continuity of Care Document ---
Author Organization [facility] Adult Medicine Address [address] [place] [address]- Care Team Providers Care Bonbon Cream Warmer Name Role Phone Gibson Velarde DO Primary Care Physician [phone] [place] [facility] [place](s): 12/06/22 - 01/05/23 [facility] Adult Medicine [address] [place], [place] [address] Allergies, Adverse Reactions, Alerts No Known Medication [...] 01/10/18 17:43:47 EDT, Route to Pharmacy Electronically, [id number], [facility]/pharmacy #[id number] Start Date: 01/10/18 Stop Date: 05/10/18 [...] Care team information Care Team Personnel Name: Gibson Velarde DO Position: S Resident Member Role: PCP Address: Address: [address] [place] [id number]- Care Team Related Persons Name: DAIN HECK Address: home [address] [place] [address]
--- OUTSIDE RECORDS SUMMARY | 2024-02-14 01:58 | XMS_ITS | Continuity of Care Document ---
Author Organization [facility] Adult Medicine Address [address] [place] [address]- Care Team Providers Care Mechanical Engineering Lecturer Name Role Phone Heron Gomez DO Primary Care Physician Encounter [facility] [place] Date(s): 03/16/21 - 04/15/21 [facility] Adult Medicine [address] [place], [place] [address] Attending Physician: Mehnaz Alves Admitting Physician: Mehnaz Alves Referring Physician: AdmtrMehnaz Allergies, Adverse Reactions, Alerts No Known Medication Allergies Medications lithium 450 mg oral tablet, extended release 1 tablet = 450 mg, By Mouth, 2 times a day, # 60 tablet, 3 Refills, Maintenance, 01/10/18 17:44:39 EDT, ER Tablet Start Date: 01/10/18 Stop Date: 05/10/18 Status: Ordered nicotine 2 mg oral transmucosal gum 1 each = 2 mg, Chew, Every 2 hours, PRN for smoking cessation, for 12 week(s), # 160 each, 1 Refills, Acute 07/28/21 14:18:00 EDT, 02/10/21 14:18:00 EDT, Gum, [id number], Partial fill upon patient request if the prescription is for a schedule... Start Date: 02/10/21 Stop Date: 07/28/21 Status: Ordered nicotine 21 mg/24 hr transdermal film, extended release 1 patch, Topically, Daily, for 30 days, # 30 patch, 6 Refills, Acute 09/08/21 14:18:00 EST, 02/10/21 14:18:00 EDT, Patch, [id number], Partial fill upon patient request if the prescription is for a schedule II opioid drug., 1 patch Topically Da... Start Date: 02/10/21 Stop Date: 09/08/21 Status: Ordered RisperDAL 0.5 mg oral tablet 0.5 mg, 1, tablet, By Mouth, Daily, # 30 tablet, Refills 3, Tot. Refills 3, Maintenance, 01/10/18 17:43:47 EDT, Route to Pharmacy Electronically, [id number], [facility]/pharmacy #[id number] Start Date: 01/10/18 Stop Date: 05/10/18 Status: Ordered Wellbutrin XL 150 mg/24 hours oral tablet, extended release 1 tablet = 150 mg, By Mouth, Every 24 hours, # 30 tablet, 3 Refills, Maintenance, 01/10/18 17:45:46EDT, ER Tablet Start Date: 01/10/18 Stop Date: 05/10/18 Status: Ordered Social History Social History Type Response Smoking Status Current every day yunior zhang; Type: Cigarettes entered on: 01/10/18 Sex
--- OUTSIDE RECORDS SUMMARY | 2024-02-14 01:58 | XMS_ITS | Continuity of Care Document ---
Author Organization [facility] Adult Medicine Address [address] [place] [address]- Care Team Providers Care Take Away Man Name Role Phone Heron Gomez DO Primary Care Physician [phone] Encounter [facility] [place] Date(s): 03/23/22 - 04/22/22 [facility] Adult Medicine [address] [place], [place] [address] Allergies, Adverse Reactions, Alerts No Known [...] 01/10/18 17:43:47 EDT, Route to Pharmacy Electronically, [id number], [facility]/pharmacy #[id number] Start Date: 01/10/18 Stop [...]
--- OUTSIDE RECORDS SUMMARY | 2024-02-14 01:58 | XMS_ITS | Continuity of Care Document ---
Author Organization [facility] Adult Medicine Address [address] [place] [address]- Care Team Providers Care Apron Operator Name Role Phone Heron Gomez DO Primary Care Physician [phone] Encounter [facility] [place] Date(s): 09/15/21 - 10/29/21 [facility] Adult Medicine [address] [place], [place] [address] Attending Physician: Fer Paulson MD Admitting Physician: Fer Paulson MD Allergies, Adverse Reactions, Alerts No Known Medication [...] 01/10/18 17:43:47 EDT, Route to Pharmacy Electronically, [id number], [facility]/pharmacy #[id number] Start Date: 01/10/18 Stop Date: [...]
--- OUTSIDE RECORDS SUMMARY | 2024-02-14 01:58 | XMS_ITS | Continuity of Care Document ---
Author Organization [facility] Address [address] [place] [address]- Care Team Providers Care Business Communications Instructor Name Role Phone Heron Gomez DO Primary Care Physician [phone] [place] [facility] [place] 04/15/21 [facility] [address] [place], [place] [address] Attending Physician: Alan Ambriz Admitting Physician: Alan Ambriz Allergies, Adverse Reactions, Alerts No Known Medication [...] 01/10/18 17:43:47 EDT, Route to Pharmacy Electronically, [id number], [facility]/pharmacy #[id number] Start Date: 01/10/18 Stop Date: [...]
[2024-02-14 02:56] VITALS: BP 141/89; PULSE 75; RESP 18; TEMP 36.4; O2SAT 98
[2024-02-14 03:27] VITALS: BP 136/86; PULSE 70; RESP 18; O2SAT 96
[2024-02-14 06:00] VITALS: BP 119/83; PULSE 63; RESP 16; TEMP 37.1; O2SAT 97
--- NOTE | 2024-02-14 06:33 | ED_ITS ---
HPI - Extremity Problem General Chief complaint: Extremity Injury, Upper Stated complaint: left arm pain/swollen Time Seen by Provider: 02/14/24 06:31 Source: patient Mode of arrival: ambulatory Limitations: no limitations History of Present Illness HPI Narrative: 34 yo right-hand dominant male presents to the ER for evaluation of right shoulder pain for the last 2 weeks. He states however since Monday he has been unable to move the right arm because of pain in the shoulder. 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 He denies any specific injury. Patient reports last night the pain got worse so he came to the ER for evaluation. He reports pain is in the shoulder and radiates all the way down arm when he tries to move it. MD Complaint: extremity pain and joint pain Onset (ago): week(s) Pain Consistency: constant Location: right Severity scale (1-10): 9 Quality: aching and sharp Radiation: distal Relieving factors: elevation Exacerbating factors: range of motion and palpation Associated symptoms: denies other symptoms Related Data Previous Rx's ?Medication ?Instructions ?Recorded acetaminophen 325 mg capsule 325 mg PO QID PRN fever or pain 06/03/22 #20 caps amoxicillin 500 mg capsule 500 mg PO BID 10 days #20 caps 06/03/22 ibuprofen 600 mg tablet 600 mg PO Q8H PRN fever or pain 06/03/22 #20 tabs ibuprofen 600 mg tablet 600 mg PO Q8H PRN pain #20 tabs 07/11/22 acetaminophen 300 mg-codeine 30 mg 1 tab PO Q8H PRN pain #10 tabs 12/02/22 tablet amoxicillin 875 mg-potassium 1 tab PO BID 7 days #14 tabs 12/02/22 clavulanate 125 mg tablet ciprofloxacin HCl 0.2 % ear drops 5 drp otic (ear) left BID Otitis 12/02/22 in a dropperette externa 7 days #14 ea naproxen 500 mg tablet 500 mg PO BID #20 tabs 02/14/24 Allergies Allergy/AdvReac Type Severity Reaction Status Date / Time seafood Allergy Swelling Verified 02/13/24 21:59 Review of Systems Review of Systems: Yes all other systems are reviewed and are negative PMFSH Social History Social History Alcohol intake: never Smoked in Last 30 Days: Yes Use of substances other than those prescribed or required for medical reasons: No Advance Directives: No Advance Directives Information Provided: Yes Do you have a plan to hurt others: No Plan Physical Exam Vital Signs: Vital Signs: Last Vital Signs Temp 98.7 F 02/14/24 06:00 Pulse 63 02/14/24 06:00 Resp 16 02/14/24 06:00 BP 119/83 02/14/24 06:00 Pulse Ox 97 02/14/24 06:00 O2 Del Method Room Air 02/14/24 06:00 BMI result Body Mass Index 36.0 Appearance: Alert. Oriented X3. No acute distress. HEENT: normal external inspection Neck: Normal inspection. CVS: Normal heart rate and rhythm. Pulses normal. Respiratory: No respiratory distress. Breath sounds normal. Skin: Skin warm and dry. Normal skin color. Normal skin turgor. No rashes. Extremities: No lower extremity edema. No joint swelling. normal inspection of the RUE, no swelling. tenderness of the anterior and lateral shoulder with limited abduction due to pain. weakness in the right shoulder due to pain. positive empty can test. [place] inact distally. equal state patrol officer strength Neuro/psych: Oriented X 3. No motor deficit. No sensory deficit. CN II-XII intact. Normal speech and cognition. Medical Decision Making Medical Decision Making MDM Narrative: 34-year-old right-hand dominant male presents to the ER for evaluation of worsening right shoulder pain for the last 2 weeks. This is in the setting of heavy lifting, possible over use. He denies any trauma. Pain is worse with abduction and palpation of the bursa. XR is normal. arm is not swollen. low suspicion for DVT. he reports his hand was swollen earlier in the week but it has since resolved. will plan to place in sling for immobilization, start NSAIDS and refer to ortho for further evaluation and treatment. stable for d/c home Differential Diagnosis Differential Diagnoses: The differential diagnosis associated with the presentation includes Acute bursitis, rotator cuff injury, AC joint separation, acute DVT, muscle strain, referred pain from the gallbladder Independent Interpretation I performed an independent interpretation of an: Plain X-Ray Interpretation: Normal-appearing right shoulder, no acute fracture, agrees radiology read Radiology Impression Discussion of test interpretation with radiology: I have reviewed the radiologist's reading. Radiologist Impression: EXAMINATION: XR SHOULDER, RIGHT CLINICAL INFORMATION: Unable to move arm COMPARISON: None available. TECHNIQUE: Three views of the right shoulder. FINDINGS: Glenohumeral alignment is anatomic. No acute fracture is seen. The acromioclavicular joint appears intact. XR/XR shoulder RT min 2V IMPRESSION: No acute findings. External Record Review External record reviewed: Outpatient record, Prior outpatient labs and Prior outpatient radiology Prescription Management I considered prescription management with: Pain Medication Critical Care Time Critical Care Time Critical Care Time: No Discharge Plan Discharge Clinical Impression: Bursitis of right shoulder Patient Disposition: Home, Self-Care Instructions: Shoulder Bursitis (ED) Additional Instructions: Your x-ray was normal. Recommend wearing the provided shoulder sling for the next 2 or 3 days. After that start slowly moving your shoulder and work on gentle range of motion. Take the prescribed anti-inflammatory pain medications as directed. Follow-up with orthopedics for further evaluation and treatment. If you develop new or worsening symptoms call 911 or come back to the ER for further evaluation. Prescriptions: New naproxen 500 mg tablet 500 mg PO BID Qty: 20 0RF No Action ciprofloxacin HCl 0.2 % dropperette 5 drp otic (ear) left BID 7 Days Qty: 14 0RF acetaminophen-codeine 300-30 mg tablet 1 tab PO Q8H PRN (Reason: pain) Qty: 10 0RF amoxicillin-pot clavulanate 875-125 mg tablet 1 tab PO BID 7 Days Qty: 14 0RF amoxicillin 500 mg capsule 500 mg PO BID 10 Days Qty: 20 0RF ibuprofen 600 mg tablet 600 mg PO Q8H PRN (Reason: fever or pain) Qty: 20 0RF acetaminophen 325 mg capsule 325 mg PO QID PRN (Reason: fever or pain) Qty: 20 0RF ibuprofen 600 mg tablet 600 mg PO Q8H PRN (Reason: pain) Qty: 20 0RF Referrals: [facility] [Provider Group] (right shoulder pain) Stand Alone Forms: Work/School Release Interventions: LWBS Worksheet Last Done: 02/14/24 02:11 Print Language: Kazakh
[2024-02-14 07:37] VITALS: BP 119/83; PULSE 63; RESP 16; TEMP 37.1; O2SAT 97
== END 2024-02-14 07:38 | disposition home or self-care (01) ==
PROVIDERS: Emergency Provider Emergency Medicine
DX: M75.51 Bursitis of right shoulder (principal); M25.511 Pain in right shoulder
CPT/HCPCS: 73030; 99283; 99284

== ENCOUNTER 2024-04-28 14:48 | Emergency (ER) | payer SELFPAY ==
[2024-04-28 14:58] VITALS: BP 146/84; PULSE 78; RESP 20; TEMP 36.9; O2SAT 96; BMI 34.5
--- NOTE | 2024-04-28 14:59 | ED.GENADULT ---
HPI - General Adult General Chief complaint: Skin/Abscess/Foreign Body Stated complaint: Fish hook in left hand Time Seen by Provider: 04/28/24 18:38 Source: patient Mode of arrival: ambulatory Limitations: no limitations History of Present Illness ED Provider: Magan Link PA-C HPI narrative: 24 yold male with pmh of Covid presents to the ED for fish hook being stuck in right hand. Was fishing and while adjusting the official round facial the stuck in his. Patient states up-to-date with tetanus. Patient denies any other complaints. Related Data Previous Rx's ?Medication ?Instructions ?Recorded acetaminophen 325 mg capsule 325 mg PO QID PRN fever or pain 06/03/22 #20 caps amoxicillin 500 mg capsule 500 mg PO BID 10 days #20 caps 06/03/22 ibuprofen 600 mg tablet 600 mg PO Q8H PRN fever or pain 06/03/22 #20 tabs ibuprofen 600 mg tablet 600 mg PO Q8H PRN pain #20 tabs 07/11/22 acetaminophen 300 mg-codeine 30 mg 1 tab PO Q8H PRN pain #10 tabs 12/02/22 tablet amoxicillin 875 mg-potassium 1 tab PO BID 7 days #14 tabs 12/02/22 clavulanate 125 mg tablet ciprofloxacin HCl 0.2 % ear drops 5 drp otic (ear) left BID Otitis 12/02/22 in a dropperette externa 7 days #14 ea naproxen 500 mg tablet 500 mg PO BID #20 tabs 02/14/24 cephalexin 500 mg capsule 500 mg PO QID 7 days #28 caps 04/28/24 levofloxacin 750 mg tablet 750 mg PO DAILY 5 days #5 tabs 04/28/24 Allergies Allergy/AdvReac Type Severity Reaction Status Date / Time seafood Allergy Swelling Verified 04/28/24 15:00 Review of Systems Review of Systems: Fish hook in right hand. Yes all other systems are reviewed and are negative PMFSH Social History Social History Alcohol intake: never Advance Directives: No Advance Directives Information Provided: No Physical Exam ED Vital Signs: Vital Signs - 24 hr 04/28/24 14:58 04/28/24 17:52 04/28/24 20:01 Temperature 98.4 F 97.9 F 97.9 F Pulse Rate 78 74 74 Respiratory Rate 20 17 17 Blood Pressure 146/84 H 147/83 H 147/83 H Pulse Oximetry 96 96 96 Oxygen Delivery Method Room Air Room Air Room Air 04/28/24 20:01 Temperature 98.1 F Pulse Rate 66 Respiratory Rate 17 Blood Pressure 121/74 Pulse Oximetry 96 Oxygen Delivery Method Room Air BMI result Body Mass Index 34.5 Const General: cooperative, healthy appearing, comfortable, no acute distress, well developed, alert, awake and Physically active Orientation/consciousness: patient oriented x3 [facility] Head: Yes normal to inspection, Yes No palpable skull fracture present, Yes normocephalic and Yes atraumatic Eyes General: appearance normal, both eyes and all related structures Neck Neck: Yes normal visual inspection, Yes full ROM, Yes no lymphadenopathy, Yes no meningeal signs, Yes trachea midline, Yes supple, No anterior neck swelling and No tender Chest Chest palpation & inspection: normal inspection of the chest and normal palpation of entire chest wall Resp Effort & Inspection: normal respiratory effort and able to speak in complete sentences Auscultation: clear to auscultation bilaterally Cardio Jugular venous distension: no JVD Heart sounds: S1 normal heart sound present and S2 normal heart sound present GI Inspection: Yes normal to inspection Palpation (GI): Soft to palpation, not firm, nontender, no guarding and not rigid General: No CVA tenderness and Yes no CVA tenderness Back/Spine/Pelvis Back: no CVA tenderness, No CVA tenderness and No back tenderness Skin General skin exam: no rashes or lesions noted, elasticity normal and turgor normal Neuro General: patient oriented x3, gait normal, tone normal, moves all extremities, Normal light touch and pain sensation, no meningeal signs, no focal motor deficits, CN's II-XI intact bilaterally and normal sensation to monofilament Extrem General: Yes normal to inspection, Yes full ROM and Yes capillary refill normal Hand/finger images: 1. Positive for fish hook. Patient has complete range of motion hands. Negative redness or pus discharge. Negative for crepitus ecchymosis. Negative for red streak. Motor/neuro/vascular exam intact Psych Appearance: grossly normal, well kempt and not disheveled Course Course Course Narrative: RME; [employer] by ELLE Link. 34 yold male presents to the ED for hook in left hand being stuck. Patient was patient and facial gastrocs to hand. Patient states last tetanus shot was 2019. Left hand positive for facial. Medical Decision Making Medical Decision Making MDM Narrative: 34-year-old male with right hand facial. Area cleaned with Betadine iodine saline. 7 mL lidocaine 1% used for local anesthesia. Size 11 blade used for incision near opening of hand where fish hook is stuck. [place] removed. Bleeding controlled. Dressing placed on hand. Patient to be discharged with antibiotics. Patient explained worrisome signs and informed to return to the ED immediately. Patient up-to-date with tetanus Differential Diagnosis Differential Diagnoses: The differential diagnosis associated with the presentation includes (fish hook removal) Admission/Observation Consideration of admission/observation: Escalation of care including admission/observation considered Independent Historian Clinical information obtained from an independent historian. History obtained from or confirmed by: Other (patient) External Record Review External record reviewed: Other (prior visits) Prescription Management I considered prescription management with: Antibiotic Discharge Plan Discharge Clinical Impression: Fish hook in dorsum of hand Patient Disposition: Home, Self-Care Instructions: Puncture Wound (ED) Additional Instructions: Return to the ED immediately for any redness, red streaks, swelling, pus discharge, foul odor, bluish black discoloration, fever, chills, numbness/tingling, inability to move extremity, or any other concerning symptoms. Due to fish leonora being in [place] water you will need to antibiotics as recommended by medical literature. You will be discharged with ceftriaxone and Levaquin. Prescriptions: New cephalexin 500 mg capsule 500 mg PO QID 7 Days Qty: 28 0RF levofloxacin 750 mg tablet 750 mg PO DAILY 5 Days Qty: 5 0RF No Action ciprofloxacin HCl 0.2 % dropperette 5 drp otic (ear) left BID 7 Days Qty: 14 0RF acetaminophen-codeine 300-30 mg tablet 1 tab PO Q8H PRN (Reason: pain) Qty: 10 0RF amoxicillin-pot clavulanate 875-125 mg tablet 1 tab PO BID 7 Days Qty: 14 0RF amoxicillin 500 mg capsule 500 mg PO BID 10 Days Qty: 20 0RF ibuprofen 600 mg tablet 600 mg PO Q8H PRN (Reason: fever or pain) Qty: 20 0RF acetaminophen 325 mg capsule 325 mg PO QID PRN (Reason: fever or pain) Qty: 20 0RF ibuprofen 600 mg tablet 600 mg PO Q8H PRN (Reason: pain) Qty: 20 0RF naproxen 500 mg tablet 500 mg PO BID Qty: 20 0RF Stand Alone Forms: Work/School Release Interventions: ED Discharge Assessment Last Done: 04/28/24 20:01 Discharge Date/Time: 04/28/24 20:01 Print Language: Honduran
[2024-04-28 17:52] VITALS: BP 147/83; PULSE 74; RESP 17; TEMP 36.6; O2SAT 96
[2024-04-28 20:01] VITALS: BP 121/74; BP 147/83; PULSE 66; PULSE 74; RESP 17; TEMP 36.6; TEMP 36.7; O2SAT 96
== END 2024-04-28 20:01 | disposition home or self-care (01) ==
PROVIDERS: Emergency Provider Internal Medicine
DX: S61.441A Puncture wound with foreign body of right hand, initial encounter (principal); M79.641 Pain in right hand; Y28.9XXA Contact with unspecified sharp object, undetermined intent, initial encounter; Y93.89 Activity, other specified; Y92.89 Other specified places as the place of occurrence of the external cause; Y99.8 Other external cause status
CPT/HCPCS: 10120; 99283; 99284

== ENCOUNTER 2024-08-11 01:43 | Inpatient (IN) | payer MEDICAID, SELFPAY ==
[2024-08-11] VITALS (8 sets, daily range): BP systolic 117–136; BP diastolic 64–79; PULSE 71–88; RESP 14–20; TEMP 36.5–37.8; O2SAT 95–98; BMI 32.3; BMI 34.9
--- NOTE | ~2024-08-11 | CT_ITS ---
EXAMINATION: CT ANGIOGRAM RIGHT LEG CLINICAL INFORMATION: Significant pain in right thigh. Swelling. COMPARISON: None available TECHNIQUE: Axial imaging was performed through the right lower extremity following the administration of 80 mL Omnipaque 350 IV contrast. Reformatted coronal, sagittal and mid images were provided for interpretation. This CT examination was performed using dose optimization techniques as appropriate, variously including the following: *Automated exposure control *Adjustment of mA and/or kV according to patient size (this includes techniques or standardized protocols for targeted exams where dose is matched to indication/reason for exam; i.e. extremities or head) *Use of iterative reconstruction technique DLP: 526 mGy-cm FINDINGS: Right common, internal and external iliac arteries are widely patent. Right common femoral artery is widely patent. Right profundus femoris artery is patent. Right superficial femoral artery is widely patent. Right popliteal artery is widely patent. Normal three-vessel runoff of the right calf. No localized subcutaneous edema of the right lower extremity. Unremarkable osseous structures of the right lower extremity. Visualized portions of the left lower extremity are grossly unremarkable. The bladder is normal in appearance. The prostate gland is normal in size. There is no gross free pelvic fluid. Shotty bilateral inguinal lymph nodes. CT/CT angio LE RT IMPRESSION: 1. Unremarkable CTA of the right lower extremity. 2. No localized subcutaneous edema of the right lower extremity. Electronically signed by: Az Phelps MD 08/11/2024 08:41 AM EDT
--- NOTE | ~2024-08-11 | XR_ITS ---
EXAMINATION: XR HIP, RIGHT CLINICAL INFORMATION: Pain. COMPARISON: CT abdomen pelvis 07/11/2022 TECHNIQUE: AP and lateral radiographs of the right hip; AP pelvic radiograph. FINDINGS: Visualized right femur appears intact. The posterior wall of the acetabulum appears intact. No arthropathic changes or dystrophic calcifications visualized. Symphysis pubis and sacroiliac joints are normal in appearance. Visualized sacrum appears intact. A transitional vertebral body is present at the lumbosacral junction may represent S1 with partial bilateral lumbarization. XR/XR hip RT w PEL1V IMPRESSION: No acute abnormalities. Electronically signed by: Stevan Kunz MD 08/11/2024 04:16 AM EDT
--- NOTE | ~2024-08-11 | CT_ITS ---
EXAMINATION: CT LUMBAR SPINE WITHOUT CONTRAST CLINICAL INFORMATION: Low back pain COMPARISON: None available. TECHNIQUE: 2 mm thin axial and reformatted 2 mm thin sagittal and coronal images of lumbar spine were obtained without IV contrast. This CT examination was performed using dose optimization techniques as appropriate, variously including the following: *Automated exposure control *Adjustment of mA and/or kV according to patient size (this includes techniques or standardized protocols for targeted exams where dose is matched to indication/reason for exam; i.e. extremities or head) *Use of iterative reconstruction technique DLP; 509 mGy-cm FINDINGS: On sagittal reconstructed images there is maintained lumbar lordosis. The vertebral heights, alignment and disc heights are normal. No visible acute fracture, dislocation or subluxation seen. There is bilateral L5 pars defect without listhesis. There is no evidence of disc bulge, herniation or spinal canal stenosis at any of the disc levels. The neural foramina are patent bilaterally at all disc levels. The prevertebral and paravertebral soft tissues are normal. No lytic or sclerotic process seen. The SI joints are symmetrical and normal. Visualized pelvic bones and the sacrum is grossly unremarkable. The urinary bladder is distended with hypodense contrast. CT/CT lumbar spine wo IV con IMPRESSION: 1. Bilateral L5 pars defect without listhesis. 2. No acute fracture, dislocation or subluxation seen. 3. There is no disc bulge, herniation or spinal canal stenosis at any disc level. Electronically signed by: Murtaza Mneeses MD 08/11/2024 03:37 PM EDT
[2024-08-11] MEDS: Morphine Sulfate Immed Release 15 MG TABLET PO (03:13)
[2024-08-11] MEDS: diazePAM 5 MG TABLET PO (03:13)
--- NOTE | 2024-08-11 03:18 | PC.NURSE ---
pt from home, a&ox4, respirations even and unlabored. pt reporting sudden onset of right hip pain, with no injury starting today. pt unable to move out of wheelchair and walk without pain. pt medicated per mar, tolerated per mar.
--- NOTE | 2024-08-11 03:24 | ED.EXTPRO ---
HPI - Extremity Problem General Chief complaint: Extremity Problem Stated complaint: right sided pain Time Seen by Provider: 08/11/24 02:01 Source: patient and family Mode of arrival: ambulatory Limitations: other (patient doesn't want to change or get out of wheelchair) History of Present Illness ED Provider: KALEY HPI Narrative: 34 yo male with no sig PMH here with c/o bending a lot at work now c/o severe R hip pain throbbing down the R thigh to knee. No back pain, no saddle anesthesia, no b/b incontinence. No thinners, IVDA, numbness or weakness. States this has never happened before. He cannot put weight on it and he is requiring his family's help to walk he initially refused even get out of the wheelchair for me to examine him and it took about 10 minutes of myself getting him into the bed so I could examine him as he adamantly refused to move with the RN Complaint: joint pain Onset (ago): hour(s) (several) Pain Consistency: constant Location: right and lower extremity Quality: crushing and constant Radiation: distal Relieving factors: immobilization Exacerbating factors: weight bearing, walking and palpation Associated symptoms: denies other symptoms Context: other Related Data Previous Rx's ?Medication ?Instructions ?Recorded acetaminophen 325 mg capsule 325 mg PO QID PRN fever or pain 06/03/22 #20 caps amoxicillin 500 mg capsule 500 mg PO BID 10 days #20 caps 06/03/22 ibuprofen 600 mg tablet 600 mg PO Q8H PRN fever or pain 06/03/22 #20 tabs ibuprofen 600 mg tablet 600 mg PO Q8H PRN pain #20 tabs 07/11/22 acetaminophen 300 mg-codeine 30 mg 1 tab PO Q8H PRN pain #10 tabs 12/02/22 tablet amoxicillin 875 mg-potassium 1 tab PO BID 7 days #14 tabs 12/02/22 clavulanate 125 mg tablet ciprofloxacin HCl 0.2 % ear drops 5 drp otic (ear) left BID Otitis 12/02/22 in a dropperette externa 7 days #14 ea naproxen 500 mg tablet 500 mg PO BID #20 tabs 02/14/24 cephalexin 500 mg capsule 500 mg PO QID 7 days #28 caps 04/28/24 levofloxacin 750 mg tablet 750 mg PO DAILY 5 days #5 tabs 04/28/24 Allergies Allergy/AdvReac Type Severity Reaction Status Date / Time seafood Allergy Swelling Verified 08/11/24 01:48 Review of Systems Review of Systems: Constitutional : No Fever, No Chills ENT/Mouth : No Ear Pain, No Hoarseness, No sore throat Eyes: No Eye Pain, No Swelling, No Redness, No Foreign Body Cardiovascular : No Chest Pain, No SOB Respiratory : No Cough, No Dyspnea Gastrointestinal : No Nausea, No Vomiting, No Diarrhea, No abdominal Pain Genitourinary : No Dysuria, No Hematuria Musculoskeletal : positive joint pain, No Myalgias, No Joint Swelling Skin : No Skin lacerations, No rash Neuro : No Weakness, No Numbness All other systems reviewed and are negative PMFSH Past Medical History Attestation statement: The following information was validated with the patient. Source: old records reviewed Medical History COVID-19 Social History Social History Alcohol intake: never Smoked in Last 30 Days: No Use of substances other than those prescribed or required for medical reasons: No Advance Directives: No Physical Exam Vital Signs: Vital Signs: Last Vital Signs Temp 99 F 08/11/24 05:34 Pulse 71 08/11/24 05:34 Resp 18 08/11/24 06:28 BP 129/70 08/11/24 05:34 Pulse Ox 97 08/11/24 05:34 O2 Del Method Room Air 08/11/24 05:34 BMI result Body Mass Index 32.3 Appearance: Alert. Oriented X3. in pain mild acute distress. this is very limited exam refused initially to get out of WC then I had to basically lift him onto the bed, he then will not take his pants off or allow me to touch the thighs so I cannot assess size fully Eyes: Pupils equal, round and reactive to light. ENT: Pharynx normal. Neck: Normal inspection. Neck supple. CVS: Normal heart rate and rhythm. Pulses normal. Respiratory: No respiratory distress. Breath sounds normal. Abdomen: Soft and nontender. no mass in R groin Skin: Skin warm and dry. Normal skin color. Normal skin turgor. Extremities: No lower extremity edema. R hip and thigh area marked ttp but no swelling normal distal pulses and compartments are soft and compressible pain is out of proportion to exam Neuro: Oriented X 3. No motor deficit. No sensory deficit. Course Course Course Narrative: at this point I have told the patient he has to get undressed and I have to be able to assess his thighs - he is aware and he is agreeable to get undressed and allow me to look and compare size of thighs in case there is hematoma or bleeding Reevaluation(s) Reevaluation #1: finally able to examine the patient laying flat in bed without his pants on after much request to fully examine him - he has pulses, his R leg and thigh are bigger in the thigh area there is no signs of cellulitis, the thigh area it ttp in medial aspect. he can make a quadricep muscle and no divot felt at the insertion, compartments are soft and compressible, SILT is intact, he has no pain with passive or active movements of his toes, he still has sig pain in the thigh area but the compartments are not tense Reevaluation #2: signed out to Dr. Nelson pending CT scan and labs Medications Administered Discontinued Medications Generic Name Dose Route Start Last Admin Trade Name Freq PRN Reason Stop Dose Admin Diazepam 5 mg 08/11/24 03:07 08/11/24 03:13 Diazepam 5 Mg Tablet PO 08/11/24 03:08 5 mg ONCE ONE Administration Diphenhydramine HCl 50 mg 08/11/24 04:41 08/11/24 05:06 Diphenhydramine Hcl 50 Mg/Ml Vial IM 08/11/24 04:42 50 mg ONCE ONE Administration Hydromorphone HCl 1 mg 08/11/24 06:12 08/11/24 06:28 Hydromorphone Hcl 1 Mg/Ml Syringe IVPUSH 08/11/24 06:13 1 mg ONCE ONE Administration Protocol Morphine Sulfate 15 mg 08/11/24 03:07 08/11/24 03:13 Morphine Sulfate Immed Release 15 Mg Tablet PO 08/11/24 03:08 15 mg ONCE ONE Administration Medical Decision Making Medical Decision Making [facility] Narrative: 34 yo male with no sig PMH here with severe R hip and thigh pain but no signs of vascular compromise, infection or compartment syndrome - at this time xray of R hip and pain control ordered. I cannot get a complete exam as he initially refused to get on the stretcher and then I need to be able to see his legs flat and without pants which he states he cannot do - I plan to try to encourage him to get a better look at his thigh area and compare the thights. Differential Diagnosis Differential Diagnoses: The differential diagnosis associated with the presentation includes muscle tear, hematoma, strain, sprain, cramp, occult frx, myositis Lab Data 08/11/24 06:26 08/11/24 06:26 Labs: Lab Results 08/11/24 Range/Units 06:26 WBC 14.1 H (4.8-10.8) X10*3/uL RBC 5.51 (4.60-5.80) X10*6/uL Hgb 16.3 (14.0-18.0) g/dl Hct 46.7 (42.0-52.0) % MCV 84.8 (80.0-98.0) fL MCH 29.6 (27.0-33.0) pg MCHC 34.9 (31.0-36.0) g/dl RDW 12.8 (11.0-16.0) % Plt Count 284 (160-400) X10*3/uL MPV 8.3 L (9.4-12.4) fL Immature Gran % (Auto) 0.3 (0.0-0.4) % Neut % (Auto) 82.1 H (45-73) % Lymph % (Auto) 10.1 L (20-40) % [place] % (Auto) 7.2 (2-11) % Eos % (Auto) 0.1 (0-4) % Baso % (Auto) 0.2 (0-2) % Lymph # (Auto) 1.4 (1.2-4.9) X10*3/uL [place] # (Auto) 1.0 (0.1-1.2) X10*3/uL Eos # (Auto) 0.0 (0.0-0.4) X10*3/uL Baso # (Auto) 0.0 (0.0-0.2) X10*3/uL Abs Immat Gran (auto) 0.04 H (0.00-0.03) X10*3/uL Absolute Neuts (auto) 11.6 H (2.0-8.3) x10*3/uL Absolute Nucleated RBC 0.000 (0.0-0.012) X10*3/uL Nucleated RBC % (auto) 0.0 (0.0-0.2) /100WBC PT 11.6 (10.9-12.4) SEC INR 1.0 (0.9-1.1) Sodium 135 (135-145) mmol/L Potassium 4.2 (3.3-5.1) mmol/L Chloride 100 (96-108) mmol/L Carbon Dioxide 25 (22-29) mmol/L Anion Gap 14 (12-20) BUN 14 (9-16) mg/dL Creatinine 1.23 (0.5-1.4) mg/dL Estim Creat Clear Calc 92.1 Estimated GFR > 60 Random Glucose 136 H (60-115) mg/dL Calcium 10.1 D (8.4-10.2) mg/dL Total Bilirubin 0.9 (0.0-1.0) mg/dL Direct Bilirubin 0.3 (0.0-0.5) mg/dL AST 40 H (5-37) U/L ALT 64 H (0-40) U/L Alkaline Phosphatase 85 (39-117) U/L Total Creatine Kinase 514 H (38-174) U/L Total Protein 8.1 H (6.5-8.0) g/dL Albumin 4.5 (3.5-5.0) g/dL Independent Interpretation I performed an independent interpretation of an: Plain X-Ray (normal) Radiology Impression Discussion of test interpretation with radiology: I have reviewed the radiologist's reading. Independent Historian Clinical information obtained from an independent historian. History obtained from or confirmed by: Spouse Discharge Plan Discharge Clinical Impression: Acute pain of right thigh Patient Disposition: Still a Patient Instructions: Arthralgia (ED), Hip Pain (ED) Additional Instructions: return for worsening symptoms or concerns rest and stay hydrated return for swelling, numbness, tingling or any other concerns FINDINGS: Visualized right femur appears intact. The posterior wall of the acetabulum appears intact. No arthropathic changes or dystrophic calcifications visualized. Symphysis pubis and sacroiliac joints are normal in appearance. Visualized sacrum appears intact. A transitional vertebral body is present at the lumbosacral junction may represent S1 with partial bilateral lumbarization. XR/XR hip RT w PEL1V IMPRESSION: No acute abnormalities Prescriptions: No Action ciprofloxacin HCl 0.2 % dropperette 5 drp otic (ear) left BID 7 Days Qty: 14 0RF acetaminophen-codeine 300-30 mg tablet 1 tab PO Q8H PRN (Reason: pain) Qty: 10 0RF amoxicillin-pot clavulanate 875-125 mg tablet 1 tab PO BID 7 Days Qty: 14 0RF amoxicillin 500 mg capsule 500 mg PO BID 10 Days Qty: 20 0RF ibuprofen 600 mg tablet 600 mg PO Q8H PRN (Reason: fever or pain) Qty: 20 0RF acetaminophen 325 mg capsule 325 mg PO QID PRN (Reason: fever or pain) Qty: 20 0RF ibuprofen 600 mg tablet 600 mg PO Q8H PRN (Reason: pain) Qty: 20 0RF naproxen 500 mg tablet 500 mg PO BID Qty: 20 0RF cephalexin 500 mg capsule 500 mg PO QID 7 Days Qty: 28 0RF levofloxacin 750 mg tablet 750 mg PO DAILY 5 Days Qty: 5 0RF Stand Alone Forms: Work/School Release Print Language: Eritrean
[2024-08-11] MEDS: diphenhydrAMINE HCL 50 MG/ML VIAL IM (05:06)
--- NOTE | 2024-08-11 05:08 | PC.NURSE ---
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 pt medicated per dec, tolerated well. pt reports 10/10 pain on movement of right hip.
[2024-08-11] MEDS: HYDROmorphone HCl 1 MG/ML SYRINGE IVPUSH (06:28)
--- NOTE | 2024-08-11 06:30 | PC.NURSE ---
at this time, pt states he is unable to get out of bed and ambulate without pain. pt reports 10/10 pain with any leg movement. 20G placed in left ac, pt medicated per dec. deaf interpreter at bedside.
[2024-08-11 06:32] LABS: MANUAL DIFF FLAG NO
[2024-08-11 06:33] LABS: Basophils Percent Auto 0.2 % (0-2); Eosinophils Percent Auto 0.1 % (0-4); Hematocrit 46.7 % (42.0-52.0); Hemoglobin 16.3 g/dl (14.0-18.0); Imm Gran Abs Auto 0.04 X10*3/uL (0.00-0.03); Imm Gran Pct Auto 0.3 % (0.0-0.4); Lymphocytes Absolute Auto 1.4 X10*3/uL (1.2-4.9); Lymphocytes Percent Auto 10.1 % (20-40); Mean Corpuscular HGB Conc 34.9 g/dl (31.0-36.0); Mean Corpuscular Hemoglobin 29.6 pg (27.0-33.0); Mean Corpuscular Volume 84.8 fL (80.0-98.0); Mean Platelet Volume 8.3 fL (9.4-12.4); Monocytes Percent Auto 7.2 % (2-11); Neutrophils Absolute Auto 11.6 x10*3/uL (2.0-8.3); Neutrophils Percent Auto 82.1 % (45-73); Platelet Count 284 X10*3/uL (160-400); Red Blood Count 5.51 X10*6/uL (4.60-5.80); Red Cell Distribution Width 12.8 % (11.0-16.0); White Blood Count 14.1 X10*3/uL (4.8-10.8)
[2024-08-11 06:38] LABS: Prothrombin Time 11.6 SEC (10.9-12.4)
[2024-08-11 06:48] LABS: Alanine Aminotransferase 64 U/L (0-40); Albumin Level 4.5 g/dL (3.5-5.0); Alkaline Phosphatase 85 U/L (39-117); Anion Gap 14 (12-20); Aspartate Amino Transferase 40 U/L (5-37); Bilirubin Direct 0.3 mg/dL (0.0-0.5); Bilirubin Total 0.9 mg/dL (0.0-1.0); Blood Urea Nitrogen 14 mg/dL (9-16); Calcium 10.1 mg/dL (8.4-10.2); Carbon Dioxide 25 mmol/L (22-29); Chloride 100 mmol/L (96-108); Creatinine Clr Calc Pharmacy 92.1; Estimated Glomerular Filt Rate > 60; Glucose Random 136 mg/dL (60-115); Potassium 4.2 mmol/L (3.3-5.1); Sodium 135 mmol/L (135-145); Total Protein 8.1 g/dL (6.5-8.0)
--- NOTE | 2024-08-11 07:00 | PC.NURSE ---
report recieved from previous RN, patient resting on stretcher, family remains at bedside, patient endorsing pain to Right leg from groin to knee. able to move extremity for this RN. plan of care remains ongoing
[2024-08-11] MEDS: 0.9 % Sodium Chloride 1,000 ML 999 ML IV (07:07)
--- NOTE | 2024-08-11 07:09 | PC.NURSE ---
lab called to add on CRP
[2024-08-11 07:21] LABS: C Reactive Protein 6.97 mg/dL (< or = 0.50)
[2024-08-11] MEDS: iohexoL 350 MG/ML 100 ML INFUS..BTL IV (07:31)
[2024-08-11 07:36] LABS: D Dimer High Sensitivity < 150 NG/ML
--- NOTE | 2024-08-11 07:41 | MHC.EDTECH ---
blood cultures were obtained
[2024-08-11 07:55] LABS: Erythrocyte Sedimentation Rate 9 MM/HR (0-15)
[2024-08-11] MEDS: Ketorolac Tromethamine 15 MG/ML VIAL IVPUSH (09:14)
--- NOTE | 2024-08-11 10:30 | MHC.EDTECH ---
this tech attempted to assist pt with standing/walking per RN request. pt was able to slowly stand, pt did not bear any weight on the right leg, states he was unable to take any steps, pt stated he endured pain when standing in his groin and buttocks area.
[2024-08-11 11:12] LABS: Amphetamine Screen Urine Not Detected (Not Detect); Barbiturates, Urine Not Detected (Not Detect); Benzodiazepines Screen Urine Not Detected (Not Detect); Buprenorphine Scr Not Detected (Not Detect); Cannabinoid Screen Urine Not Detected (Not Detect); Cocaine Screen Urine Not Detected (Not Detect); Fentanyl, urine Not Detected (Not Detect); Methadone Screen, Urine Not Detected (Not Detect); Opiate Screen Urine POSITIVE (Not Detect); Oxycodone Screen Urine Not Detected (Not Detect); Phencyclidine Screen Urine Not Detected (Not Detect)
--- NOTE | 2024-08-11 11:29 | PM.IMHP ---
History of Present Illness Date of Service: 08/11/24 Chief Complaint: Pain 34 year old male with no significant PMH with c/o bending a lot at work now c/o severe R hip pain throbbing down the R thigh to knee. No back pain, no saddle anesthesia, no bowel or bladder incontinence. Smokes half pack of cigarettes a day, denies drug use. He does have difficulty with ambulation. Noted to have leukocytosis, left shift, no infectious symptoms noted. Received IV pain medication and IV fluids in the ER. He will be admitted for further management and treatment of acute pain likely radiculopathy with abnormal labs. Review of Systems Review of Systems: Denies any recent fever chills or decrease in appetite respiratory denies any shortness of breath or cough cardiovascular denied chest pain gastrointestinal denies any dysphagia abdominal pain nausea vomiting or diarrhea genitourinary denies any dysuria frequency or hematuria musculoskeletal pain from right hip radiating down to knee neuropsych denies any weakness or seizures all other systems reviewed are negative [facility] Medical History (Updated 08/11/24 @ 06:22 by Sommer Barajas DO) COVID-19 Pertinent family history: Diabetes mellitus Surgical History (Updated 08/11/24 @ 15:12 by Carlotta Justin NP) H/O hand surgery Social History (Updated 08/11/24 @ 15:13 by Carlotta Justin NP) Alcohol intake: never Cigarettes Per Day: 10 Meds Allergies Allergy/AdvReac Type Severity Reaction Status Date / Time seafood Allergy Swelling Verified 08/11/24 01:48 Active Medications: Current Medications Acetaminophen (Acetaminophen 325 Mg Tablet) 650 mg PO Q6H PRN PRN Reason: Pain, Mild (Pain Scale 1-3), fever or headache Enoxaparin Sodium (Enoxaparin Sodium 40 Mg/0.4 Ml Syringe) 40 mg SUBCUT Q24H BRIT Ondansetron HCl (Ondansetron Hcl 4 Mg/2 Ml Vial) 4 mg IVPUSH Q8H PRN PRN Reason: Nausea and Vomiting Pharmacy Consult (Consult Rx Vancomycin Dosing) 1 each MISCELLANE DAILY PRN PRN Reason: Consult order Home Medications ?Medication ?Instructions ?Recorded ?Confirmed ?Last Taken ?Type No Known Home Meds 08/11/24 08/11/24 Unknown History Physical Exam Vital Signs and Narrative: Vital Signs: Last Vital Signs Temp 97.9 F 08/11/24 10:35 Pulse 77 08/11/24 10:35 Resp 18 08/11/24 10:35 BP 122/78 08/11/24 10:35 Pulse Ox 98 08/11/24 10:35 O2 Del Method Room Air 08/11/24 10:35 BMI result Body Mass Index 32.3 Appearing in no acute distress head is normocephalic atraumatic eyes pupils are PERRLA sclera is anicteric mouth throat mucous membranes are intact and moist neck is supple no lymphadenopathy, no JVD noted lung sounds are clear to auscultation heart regular rate rhythm, clear S1, S2 positive bowel sounds, abdomen is soft, nontender neuro patient is alert x3, no focal deficits Results Labs 08/11/24 06:26 08/11/24 06:26 Labs: Laboratory Results - last 24 hr 08/11/24 08/11/24 06:26 Unknown MCV 84.8 MCH 29.6 MCHC 34.9 RDW 12.8 Plt Count 284 MPV 8.3 L Immature Gran % (Auto) 0.3 Neut % (Auto) 82.1 H Lymph % (Auto) 10.1 L [place] % (Auto) 7.2 Eos % (Auto) 0.1 Baso % (Auto) 0.2 Lymph # (Auto) 1.4 [place] # (Auto) 1.0 Eos # (Auto) 0.0 Baso # (Auto) 0.0 Abs Immat Gran (auto) 0.04 H Absolute Neuts (auto) 11.6 H Absolute Nucleated RBC 0.000 Nucleated RBC % (auto) 0.0 ESR 9 PT 11.6 INR 1.0 D-Dimer High Sensitivty < 150 Anion Gap 14 Estim Creat Clear Calc 92.1 Estimated GFR > 60 Random Glucose 136 H Calcium 10.1 D Total Bilirubin 0.9 Direct Bilirubin 0.3 AST 40 H ALT 64 H Alkaline Phosphatase 85 Total Creatine Kinase 514 H C-Reactive Protein 6.97 H Total Protein 8.1 H Albumin 4.5 Urine Opiates Screen POSITIVE H Ur Buprenorphine Scrn Not Detected Ur Oxycodone Screen Not Detected Urine Methadone Screen Not Detected Urine Fentanyl Screen Not Detected Ur Barbiturates Screen Not Detected Ur Phencyclidine Scrn Not Detected Ur Amphetamines Screen Not Detected U Benzodiazepines Scrn Not Detected Urine Cocaine Screen Not Detected U Marijuana (THC) Screen Not Detected Imaging Radiologist's Impressions: Impressions Hip/Pelvis X-Ray 08/11/24 03:25 IMPRESSION: No acute abnormalities. Electronically signed by: Stevan Kunz MD 08/11/2024 04:16 AM EDT RP Lower Extremity CTA 08/11/24 07:17 IMPRESSION: 1. Unremarkable CTA of the right lower extremity. 2. No localized subcutaneous edema of the right lower extremity. Electronically signed by: Az Phelps MD 08/11/2024 08:41 AM EDT RP Assessment and Plan (1) Acute pain of right thigh: Status: Acute Plan 34 year old man admitted with back pain after lifting something at work Back pain Lumbar CT and right LE CT angio negative for acute or chronic abnormalities likely radiculopathy, muscle strain pain medication as needed PT heat and cold pain Leukocytosis, left shift, elevated CRP unknown etiology ua neg no respiratory symptoms No open sores or wounds follow blood cx Smoker Offered nicotine replacement, declined Obesity class 1 Discussed importance of weight management as this may be contributing to worsening of other comorbidities DVT prophylaxis with Lovenox Full code Quality Stroke Does the patient have a stroke diagnosis?: No VTE Prior VTE?: No VTE Risk Level:: Medical - moderate - high VTE Device Contraindication: Treatment Not Indicated VTE Drug Contraindication: N/A - Med Ordered
[2024-08-11 11:38] LABS: Appearance Urine Clear; Color Urine Yellow; Glucose Urine UA Negative (Negative); Leukocyte Esterase Urine Negative (Negative); Nitrite Urine Negative (Negative); Specific Gravity - Urine >= 1.030 (1.005-1.025); UMIC TRIGGER UACC YES; Urine Blood Trace (Negative); Urine Ketones Negative (Negative); Urine Protein Negative (Neg-Trace)
[2024-08-11 11:43] LABS: Bacteria Urine None Seen (None Seen); Hyaline Casts Urine 0-2 /LPF (0-2); RBC Urine 0-2 /HPF (0-2); Squamous Epithelial Cell Urine 0-2 /HPF (0-2); WBC Urine 0-5 /HPF (0-5)
[2024-08-11] MEDS: Morphine Sulfate 2 MG/ML CARTRIDGE 1 MG IVPUSH (12:23)
[2024-08-11] MEDS: Enoxaparin Sodium 40 MG/0.4 ML SYRINGE SUBCUT (12:24)
[2024-08-11] MEDS: vancomycin/NS 2,000 MG/500 ML PLAST..BAG 250 MG IV (12:25)
--- NOTE | 2024-08-11 14:00 | PC.NURSE ---
patient standing at bedside to use urinal.
--- NOTE | 2024-08-11 14:36 | PC.NURSE ---
pt to CT, after scan to be transported to unit
--- NOTE | 2024-08-11 14:55 | PHA.MEDREC ---
Addendum entered by Gerardo Garcia 08/11/24 15:27: reviewed Original Note: Pharmacy Consult ? Medication Reconciliation Pharmacy has completed the medication reconciliation.
[2024-08-11] MEDS: oxyCODONE HCl Immed Release 5 MG TABLET PO ×2 (15:59→21:35)
[2024-08-11] MEDS: predniSONE 20 MG TABLET 40 MG PO (16:17)
[2024-08-11] MEDS: vancomycin HCL 1,000 MG in 0.9 % Sodium Chloride 250 ML 270 MG IV (21:24)
[2024-08-12 04:00] VITALS: BP 141/64; PULSE 82; RESP 14; TEMP 36.5; O2SAT 98
[2024-08-12 06:14] LABS: MANUAL DIFF FLAG NO
[2024-08-12 06:17] LABS: Basophils Percent Auto 0.2 % (0-2); Eosinophils Percent Auto 0.2 % (0-4); Hematocrit 42.8 % (42.0-52.0); Imm Gran Abs Auto 0.04 X10*3/uL (0.00-0.03); Imm Gran Pct Auto 0.3 % (0.0-0.4); Lymphocytes Absolute Auto 1.8 X10*3/uL (1.2-4.9); Lymphocytes Percent Auto 14.5 % (20-40); Mean Corpuscular Hemoglobin 30.1 pg (27.0-33.0); Mean Corpuscular Volume 85.8 fL (80.0-98.0); Mean Platelet Volume 8.8 fL (9.4-12.4); Monocytes Absolute Auto 1.3 X10*3/uL (0.1-1.2); Monocytes Percent Auto 10.3 % (2-11); Neutrophils Absolute Auto 9.4 x10*3/uL (2.0-8.3); Neutrophils Percent Auto 74.5 % (45-73); Platelet Count 250 X10*3/uL (160-400); Red Blood Count 4.99 X10*6/uL (4.60-5.80); Red Cell Distribution Width 12.9 % (11.0-16.0); White Blood Count 12.6 X10*3/uL (4.8-10.8)
[2024-08-12 06:38] LABS: Alanine Aminotransferase 109 U/L (0-40); Albumin Level 3.7 g/dL (3.5-5.0); Alkaline Phosphatase 79 U/L (39-117); Anion Gap 12 (12-20); Aspartate Amino Transferase 70 U/L (5-37); Bilirubin Total 0.6 mg/dL (0.0-1.0); Blood Urea Nitrogen 14 mg/dL (9-16); Carbon Dioxide 25 mmol/L (22-29); Chloride 105 mmol/L (96-108); Creatinine Clr Calc Pharmacy 113.3; Estimated Glomerular Filt Rate > 60; Glucose Random 110 mg/dL (60-115); Potassium 4.1 mmol/L (3.3-5.1); Sodium 138 mmol/L (135-145)
[2024-08-12 07:12] VITALS: BP 123/60; PULSE 74; RESP 18; TEMP 36.9; O2SAT 98
[2024-08-12] MEDS: predniSONE 20 MG TABLET 40 MG PO (08:47)
[2024-08-12] MEDS: Morphine Sulfate 2 MG/ML CARTRIDGE 1 MG IVPUSH (08:47)
--- NOTE | 2024-08-12 09:32 | MHC.CM.PN ---
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 PT REPORTS HE DOES NOT KNOW IF HE HAS A PCP HOWEVER HAS NOT SEEN A DOCTOR IN OVER A YEAR AND POSSIBLY LONGER, PT ALSO UNSURE IF HE HAS HEALTH INSURANCE AND REPORTS HIS G.F. IS ON HER WAY IN TO VISIT AND SHOULD KNOW. PT EDUCATED ON HCP'S, PT CURRENTLY DECLINING HE WOULD WANT TO DISCUSS W/HIS S.O.
[2024-08-12] MEDS: Enoxaparin Sodium 40 MG/0.4 ML SYRINGE SUBCUT (11:12)
[2024-08-12] MEDS: vancomycin HCL 1,000 MG in 0.9 % Sodium Chloride 250 ML 270 MG IV (11:12)
--- NOTE | 2024-08-12 12:17 | PM.DS ---
DS: Providers Provider Date of Service: 08/12/24 Date of admission: 08/11/24 11:24 Primary care physician: None Physician DS: Diagnosis Discharge Diagnosis (1) Acute pain of right thigh: Status: Acute DS: Summary Hospital Course Hospital Course: 34 year old male with no significant PMH with c/o bending a lot at work now c/o severe R hip pain throbbing down the R thigh to knee. No back pain, no saddle anesthesia, no bowel or bladder incontinence. Smokes half pack of cigarettes a day, denies drug use. He does have difficulty with ambulation. Noted to have leukocytosis, left shift, no infectious symptoms noted. Received IV pain medication and IV fluids in the ER. He will be admitted for further management and treatment of acute pain likely radiculopathy with abnormal labs. Back pain secondary to L5 pars defect, does have some radicular pain to right thigh into the groin and that may also be a muscle strain. 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 He was treated with IV pain medication and anti-inflammatories. He can use ibuprofen at home and will send home with a few days of oxycodone as well. Unfortunately at this time patient does not have a primary care provider and is unable to have outpatient physical therapy but he is currently working on obtaining health insurance and will schedule an appointment with the primary care provider as soon as he obtains insurance. In the meantime if he has any issues or in need of any pain medication or continues to have difficulty with ambulation he may return to the emergency department. He can use heat and cold packs alternating. He was not do any heavy lifting, he does have a work note for 7 days he may need more time therefore he could go to an urgent care to seek an examination and a work note for further time off. Leukocytosis, left shift, elevated CRP. No obvious infectious source, blood cultures negative. Likely related to inflammation from injury. Smoker. Discussed importance of smoking cessation Obesity class 1 Discussed importance of weight management as this may be contributing to worsening of other comorbidities Time Attestation Discharge Coordination Time (in mins): 36 Quality: Safe Use of Opioids Does Pt have an Active Cancer Diagnosis on the Problem List?: No Quality: Stroke Does the patient have a stroke diagnosis?: No Physical Exam Vital Signs: Vital Signs: Last Vital Signs Temp 98.5 F 08/12/24 07:12 Pulse 74 08/12/24 07:12 Resp 18 08/12/24 07:12 BP 123/60 08/12/24 07:12 Pulse Ox 98 08/12/24 07:12 O2 Del Method Room Air 08/12/24 07:12 BMI result Body Mass Index 34.9 Appearing in no acute distress head is normocephalic atraumatic eyes pupils are PERRLA sclera is anicteric mouth throat mucous membranes are intact and moist neck is supple no lymphadenopathy, no JVD noted lung sounds are clear to auscultation heart regular rate rhythm, clear S1, S2 positive bowel sounds, abdomen is soft, nontender neuro patient is alert x3, no focal deficits Pain with palpation to right thigh and hip area DS: Data Data Completed and Pending Labs on day of discharge: Laboratory Results - last 24 hr 08/12/24 06:00 WBC 12.6 H RBC 4.99 Hgb 15.0 Hct 42.8 MCV 85.8 MCH 30.1 MCHC 35.0 RDW 12.9 Plt Count 250 MPV 8.8 L Immature Gran % (Auto) 0.3 Neut % (Auto) 74.5 H Lymph % (Auto) 14.5 L Yell % (Auto) 10.3 Eos % (Auto) 0.2 Baso % (Auto) 0.2 Lymph # (Auto) 1.8 Yell # (Auto) 1.3 H Eos # (Auto) 0.0 Baso # (Auto) 0.0 Abs Immat Gran (auto) 0.04 H Absolute Neuts (auto) 9.4 H Absolute Nucleated RBC 0.000 Nucleated RBC % (auto) 0.0 Sodium 138 Potassium 4.1 Chloride 105 Carbon Dioxide 25 Anion Gap 12 BUN 14 Creatinine 1.04 Estim Creat Clear Calc 113.3 Estimated GFR > 60 Random Glucose 110 Calcium 9.0 D Total Bilirubin 0.6 AST 70 H ALT 109 H Alkaline Phosphatase 79 Total Protein 7.0 Albumin 3.7 Preliminary micro results at discharge 08/11/24 07:39 Blood Culture - Preliminary Blood - Venous No growth after 24 hours. 08/11/24 07:39 Blood Culture - Preliminary Blood - Venous No growth after 24 hours. Discharge Plan Discharge Anticipated Discharge Date/Time: 08/12/24 12:02 Patient Disposition: Home, Self-Care Discharge Diagnosis: L5 Pars defect Back pain Leukocytosis Discharge Medications: New oxycodone 5 mg Tablet 5 mg PO Q6H PRN (Reason: Pain, Moderate(Pain Scale 4-6)) Qty: 24 0RF Rx Instructions: Partial Fill upon patient request. prednisone 5 mg tablet See Taper PO DAILY Qty: 12 0RF Taper: Prednisone 40 mg daily for 3 Days and 0 Hour 30 mg daily for 3 Days and 0 Hour 20 mg daily for 3 Days and 0 Hour 10 mg daily for 3 Days and 0 Hour ibuprofen 800 mg tablet 800 mg PO Q8H PRN (Reason: pain) Qty: 18 0RF (DME) walker Misc See Rx Instructions .Route Qty: 1 0RF Rx Instructions: As directed Discharge Orders: Discharge Order (Routine); Ordered 08/12/24 Ordered By: Carlotta Justin Diet: Advance to usual diet Activity on Discharge: As tolerated Stand Alone Forms: Patient Portal Discharge page, Work/School Release Print Language: [place] Activity Restrictions/Additional Instructions: return for worsening symptoms or concerns rest and stay hydrated return for swelling, numbness, tingling or any other concerns Care Plan Goals: What are the symptoms of spondylolysis? A person with a pars defect may feel pain and stiffness in the lower back that is worsened with activity and improves with rest. Hyperextension (abnormal stretching) of the lower back will usually aggravate the area as it overloads the pars fracture. Occasionally, nerve symptoms can be present. These may include: a ?pins and needles? sensation in a leg, with or without numbness or weakness in the legpain in the back, neck, legs, thighs or shouldermuscle spasms or weaknesstingling, numbness and/or stiffness in the back How is spondylolysis treated? The initial treatment for these types of stress fractures is rest from activity and bracing, followed by physical therapy. Treatment is individualized depending on the injury, age and the demands of the sport. The fracture can be assessed with a series of X-rays every few months. If the patient has persistent pain after nonsurgical treatment, surgery may be required. What is the recovery time for spondylolysis? The recovery period for nonsurgical treatment ranges from a couple of weeks to several months depending on the severity. Health Concerns: L5 Pars defect Back pain Leukocytosis Plan of Treatment: Obtain health insurance and schedule an appointment for primary care provider further management of symptoms Assessment: See discharge summary Patient Instructions: Arthralgia (ED), Hip Pain (ED)
--- NOTE | 2024-08-12 13:10 | MHC.CM.PN ---
[place] MEDICALLY CLEAR[place] [facility] [facility] [place] S.O. FOR TRANSPORT
== END 2024-08-12 14:47 | disposition home or self-care (01) | DRG 347 ==
LOC: HO.ED 07:02 → HO.EDOVER 11:32 → HO.IMC 13:27
PROVIDERS: Emergency Medicine; Admitting Provider Nurse Practitioner Acute Care; Emergency Provider Emergency Medicine; Visit Provider Nurse Practitioner Acute Care
DX: M43.06 Spondylolysis, lumbar region (principal); E66.811 Obesity, class 1; S76.011A Strain of muscle, fascia and tendon of right hip, initial encounter; X58.XXXA Exposure to other specified factors, initial encounter; F17.210 Nicotine dependence, cigarettes, uncomplicated; Z71.6 Tobacco abuse counseling; Z68.34 Body mass index [BMI] 34.0-34.9, adult; Z71.3 Dietary counseling and surveillance; M54.16 Radiculopathy, lumbar region
CPT/HCPCS: 36415; 72131; 73502; 73706; 80048; 80053; 80076; 80307; 81001; 82550; 85025; 85379; 85610; 85652; 86140; 87040; 97161; 99285; J1171; J1200; J1650; J1885; J2270; J3370; Q9967

== ENCOUNTER → 2024-08-11 11:24 | Outpatient (BNV) | payer MEDICAID, SELFPAY | PROVIDERS: Admitting Provider Nurse Practitioner Acute Care; Emergency Provider Emergency Medicine; Visit Provider Nurse Practitioner Acute Care | DX: M79.651 Pain in right thigh (principal) | CPT/HCPCS: 99223; 99239 ==